=== PATIENT | female | born 1930 | race Caucasian/White ===

== ENCOUNTER 2018-05-28 17:07 | Emergency (ER) | payer OTHER ==
[~2018-05-28] VITALS: Ht 149.9 cm; Wt 40.8 kg
[~2018-05-28 17:07] MED LIST: ASPI81EC; ATOR10; CEPH500 PO; HYDACE5 PO; METO50ER; RXHYDACE PO
[2018-05-28 17:59] LABS: BASOPHILS ABSOLUTE AUTO 0.06 K/mm3 (0.00-0.23); BASOPHILS PERCENT AUTO 1 % (0-2); EOSINOPHILS ABSOLUTE AUTO 0.06 K/mm3 (0.00-0.68); EOSINOPHILS PERCENT AUTO 1 % (0-6); Hematocrit 44.6 % (33.0-51.0); Hemoglobin 14.6 g/dL (11.5-16.0); IMMATURE GRAN ABSOLUTE AUTO 0.02 K/mm3 (0.00-0.10); IMMATURE GRAN PERCENT AUTO 0 % (0-1); LYMPHOCYTES ABSOLUTE AUTO 1.52 K/mm3 (0.84-5.20); LYMPHOCYTES PERCENT AUTO 15 % (21-46); MONOCYTES ABSOLUTE AUTO 0.75 K/mm3 (0.16-1.47); MONOCYTES PERCENT AUTO 7 % (4-13); Mean Corpuscular HGB Conc 32.7 g/dL (31.5-36.5); Mean Corpuscular Volume 89 fL (80-100); Mean Platelet Volume 11.2 fL (9.1-12.4); NEUTROPHILS ABSOLUTE AUTO 7.76 K/mm3 (1.96-9.15); NEUTROPHILS PERCENT AUTO 76 % (41-73); Platelet Count 192 K/mm3 (150-400); RDW Coefficient Variation 12.7 % (11.7-14.2); RDW Standard Deviation 41.4 fL (35.1-46.3); Red Blood Cell Count 5.04 M/mm3 (3.80-5.20); White Blood Cell Count 10.17 K/mm3 (4.00-11.30)
[2018-05-28 18:35] LABS: Alanine Aminotransfer (ALT/SGP 20 U/L (12-78); Albumin, Blood 3.7 g/dL (3.4-5.0); Albumin/Globulin Ratio 0.9 (0.8-1.8); Alk Phos 82 U/L (50-136); Anion Gap 9 mmol/L (6-16); Aspartate Aminotrans (AST/SGOT 18 U/L (12-37); Bilirubin, Total 0.9 mg/dL (0.1-1.0); Blood Urea Nitrogen 19 mg/dL (8-24); Bun/Creatinine Ratio 25.9 (12.0-20.0); CO2, Blood 27 mmol/L (21-32); Chloride, Blood 103 mmol/L (98-108); Creatinine, Blood 0.73 mg/dL (0.40-1.00); Globulin, Blood 4.2 g/dL (2.2-4.0); Glomerular Filtration Rate >60 (60-); Glucose, Blood 109 mg/dL (70-99); Potassium, Blood 3.5 mmol/L (3.5-5.5); Sodium, Blood 139 mmol/L (136-145); Total Protein, Blood 7.9 g/dL (6.4-8.2); Troponin I <0.015 ng/mL (0.000-0.040)
== END 2018-05-28 20:26 | disposition home or self-care (01) ==
LOC: ER 17:07
PROVIDERS: Physician Assistant
DX: R00.2 Palpitations (principal); R53.83 Other fatigue; I48.91 Unspecified atrial fibrillation; Z79.899 Other long term (current) drug therapy; Z79.82 Long term (current) use of aspirin; Z88.0 Allergy status to penicillin
CPT/HCPCS: 36415; 71046; 80053; 84484; 85025; 93005; 93010; 96360; 99285-25; J7030

== ENCOUNTER 2019-12-24 22:22 | Inpatient (IN) | payer OTHER ==
[~2019-12-24] VITALS: Ht 149.9 cm; Wt 40.2 kg
[~2019-12-24 22:22] MED LIST changes: -ASPI81EC; +Aspirin EC81 MG PO
[2019-12-24 23:28] LABS: Source, Urine Catheter
[2019-12-24 23:30] LABS: Bilirubin, Urine Neg (Neg); Blood, Urine 5+ (Neg); Glucose Qualitative, Urine Neg (Neg); Ketones, Urine Neg (Neg); Leukocyte Esterase, Urine Neg (Neg); Nitrite, Urine Neg (Neg); Protein, Urine 3+ (Neg); Specific Gravity, Urine 1.025 (1.003-1.022); Urobilinogen, Urine NORM (Normal)
[2019-12-24 23:31] LABS: Appearance, Urine Hazy (Clear); Color, Urine Yellow (P-Yellow)
[2019-12-24] MEDS ORDERED: TOPROL XL25 MG PO (23:33)
[2019-12-24 23:38] LABS: Amorphous Heavy (0-Heavy); Bacteria Few /hpf; Squamous Epithelial Cells Rare /hpf (Few); White Blood Cells, Urine Rare /hpf (0-5)
[2019-12-24 23:42] LABS: BASOPHILS ABSOLUTE AUTO 0.02 K/mm3 (0.00-0.23); BASOPHILS PERCENT AUTO 0 % (0-2); EOSINOPHILS ABSOLUTE AUTO 0.05 K/mm3 (0.00-0.68); EOSINOPHILS PERCENT AUTO 1 % (0-6); Hematocrit 35.7 % (33.0-51.0); Hemoglobin 11.4 g/dL (11.5-16.0); IMMATURE GRAN ABSOLUTE AUTO 0.04 K/mm3 (0.00-0.10); IMMATURE GRAN PERCENT AUTO 0 % (0-1); LYMPHOCYTES PERCENT AUTO 7 % (21-46); MONOCYTES ABSOLUTE AUTO 0.59 K/mm3 (0.16-1.47); MONOCYTES PERCENT AUTO 5 % (4-13); Mean Corpuscular HGB 28.6 pg (26.0-34.0); Mean Corpuscular HGB Conc 31.9 g/dL (31.5-36.5); Mean Corpuscular Volume 90 fL (80-100); Mean Platelet Volume 11.6 fL (9.1-12.4); NEUTROPHILS ABSOLUTE AUTO 9.57 K/mm3 (1.96-9.15); NEUTROPHILS PERCENT AUTO 86 % (41-73); Platelet Count 112 K/mm3 (150-400); RDW Coefficient Variation 12.6 % (11.7-14.2); RDW Standard Deviation 41.7 fL (35.1-46.3); Red Blood Cell Count 3.99 M/mm3 (3.80-5.20); U Amphetamine Screen Not Detected; U Barbituate Screen Not Detected; U Benzodiazapine Screen Not Detected; U Buprenorphine Screen Not Detected; U Cannabinoids Screen Not Detected; U Cocaine Screen Not Detected; U Methadone Screen Not Detected; U Methamphetamine Screen Not Detected; U Opiates Screen Not Detected; U Oxycodone Screen Not Detected; U Phencyclidine Screen Not Detected; U Propoxyphene Screen Not Detected; White Blood Cell Count 11.07 K/mm3 (4.00-11.30)
[2019-12-24 23:56] LABS: International Normalized Ratio 1.1; Prothrombin Time Results 11.7 Sec (9.7-11.5)
[2019-12-25 00:07] LABS: Alanine Aminotransfer (ALT/SGP 19 U/L (12-78); Albumin, Blood 2.8 g/dL (3.4-5.0); Albumin/Globulin Ratio 0.9 (0.8-1.8); Alk Phos 58 U/L (50-136); Anion Gap 4 mmol/L (6-16); Aspartate Aminotrans (AST/SGOT 36 U/L (12-37); Beta HCG, Quantitative, Serum 1 mIU/mL (0-3); Bilirubin, Total 0.4 mg/dL (0.1-1.0); Blood Urea Nitrogen 19 mg/dL (8-24); CO2, Blood 29 mmol/L (21-32); Calcium, Blood 7.9 mg/dL (8.5-10.1); Chloride, Blood 104 mmol/L (98-108); Creatinine, Blood 0.76 mg/dL (0.40-1.00); Glomerular Filtration Rate >60 (60-); Glucose, Blood 120 mg/dL (70-99); Potassium, Blood 3.7 mmol/L (3.5-5.5); Sodium, Blood 137 mmol/L (136-145); Total Protein, Blood 5.8 g/dL (6.4-8.2)
[2019-12-25 00:09] LABS: Ethanol (Alcohol), Blood, Med <3 mg/dL
--- NOTE | 2019-12-25 03:28 | NUR ---
ASSUMED CARE NOTE: ASSUMED CARE OF PT AT 0250, RECEVIED REPORT FROM DEANNA ANN RN. PT IS INTUBATED AND SEDATED. PT RESPONDING TO PAINFUL STIMULI, MOVING HANDS AND FEET. PROPOFOL TITRATED TO 30MCG/KG/MIN FROM 20MCG/KG/MIN. PT HAS C-COLLAR IN PLACE. PT WAS TRANFERED FROM STRETCHER TO BED WITH 4 STAFF MEMBERS, ONE HOLDING C-SPINE IN PLACE. ETT, 7.5, 23 AT THE LIP. VENT SETTINGS AC/16/350/5/25%, SPO2 AT 98% PT'S LUNG SOUNDS ARE CLEAR T/O. OGT TO LIS. PT IN NSR WITH HR IN THE 80'S. PT HAS EXTENSIVE BRUISING, AND SWELLING TO THE FACE, NECK AND SCATTERED T/O. SKIN TEARS NOTED, SEE PICTURES IN CHART. WOUNDS WERE CLEANED AND DRESSED. BP STABLE, TEMP AT 100.4. BLANKETS REMOVED. CALL OUT TO TO PLACE CENTRAL LINE.
[2019-12-25 03:33] LABS: BASOPHILS ABSOLUTE AUTO 0.07 K/mm3 (0.00-0.23); BASOPHILS PERCENT AUTO 0 % (0-2); EOSINOPHILS ABSOLUTE AUTO 0.05 K/mm3 (0.00-0.68); EOSINOPHILS PERCENT AUTO 0 % (0-6); Hematocrit 43.7 % (33.0-51.0); Hemoglobin 14.5 g/dL (11.5-16.0); IMMATURE GRAN ABSOLUTE AUTO 0.14 K/mm3 (0.00-0.10); IMMATURE GRAN PERCENT AUTO 1 % (0-1); LYMPHOCYTES ABSOLUTE AUTO 3.21 K/mm3 (0.84-5.20); LYMPHOCYTES PERCENT AUTO 14 % (21-46); MONOCYTES ABSOLUTE AUTO 1.83 K/mm3 (0.16-1.47); MONOCYTES PERCENT AUTO 8 % (4-13); Mean Corpuscular HGB 28.4 pg (26.0-34.0); Mean Corpuscular HGB Conc 33.2 g/dL (31.5-36.5); Mean Corpuscular Volume 86 fL (80-100); NEUTROPHILS ABSOLUTE AUTO 17.79 K/mm3 (1.96-9.15); NEUTROPHILS PERCENT AUTO 77 % (41-73); RDW Coefficient Variation 12.7 % (11.7-14.2); RDW Standard Deviation 39.6 fL (35.1-46.3); Red Blood Cell Count 5.11 M/mm3 (3.80-5.20); White Blood Cell Count 23.09 K/mm3 (4.00-11.30)
[2019-12-25 03:36] LABS: Mean Platelet Volume 11.7 fL (9.1-12.4); Platelet Count 155 K/mm3 (150-400)
[2019-12-25 03:48] LABS: Alanine Aminotransfer (ALT/SGP 31 U/L (12-78); Albumin, Blood 3.8 g/dL (3.4-5.0); Albumin/Globulin Ratio 1.1 (0.8-1.8); Alk Phos 70 U/L (50-136); Anion Gap 10 mmol/L (6-16); Aspartate Aminotrans (AST/SGOT 59 U/L (12-37); Bilirubin, Total 0.9 mg/dL (0.1-1.0); Blood Urea Nitrogen 19 mg/dL (8-24); Bun/Creatinine Ratio 25.5 (12.0-20.0); CO2, Blood 24 mmol/L (21-32); Calcium, Blood 9.1 mg/dL (8.5-10.1); Chloride, Blood 106 mmol/L (98-108); Creatinine, Blood 0.75 mg/dL (0.40-1.00); Globulin, Blood 3.5 g/dL (2.2-4.0); Glomerular Filtration Rate >60 (60-); Glucose, Blood 110 mg/dL (70-99); Sodium, Blood 140 mmol/L (136-145); Total Protein, Blood 7.3 g/dL (6.4-8.2)
--- NOTE | 2019-12-25 04:48 | NUR ---
UPDATE: 0418- PT RECEVIED RIGHT FEMORAL CENTRAL LINE, FLUSHING WELL. REQUESTED A CVP, WHICH IS 5. SAFE SET IN PLACE. PT IN SUPINE POSITION. WILL CONTINUE TO MONITOR.
--- NOTE | 2019-12-25 06:10 | NUR ---
SHIFT SUMMARY: SEE PREVIOUS NOTE. NO CHANGES TO VENT SETTINGS. PT IS RESPONDING TO PAINFUL STIMULI. PT MOVING FEET FROM SIDE TO SIDE. PROPOFOL TITRATED TO 40MCG/KG/MIN, DUE TO INCREASED AGITATION. FENTYNAL GIVEN PRN FOR PAIN PER EMAR. PT HAS BEEN IN NSR WITH HR IN THE 70'S. OGT TO LIS, DARK BROWN DRAINAGE NOTED. BT HYPOACTIVE IN ALL FOUR QUADRANTS. MCHUGH PATENT DRAINING CLEAR YELLOW URINE. PT RECEVIED RIGHT FEMORAL CENTRAL LINE THIS SHIFT. VITALS STABLE. WILL CONTINUE TO MONITOR PT UNTIL REPORT IS GIVEN TO ONCOMING SHIFT.
--- NOTE | 2019-12-25 09:39 | NUR ---
CARE ASSUMED CARE AND REPORT ASSUMED FROM SHIRA BOWMAN. PT INTUBATED AND SEDATED. PROPOFOL GTT AT 30 MCG. BP LOW WITH MAP 55-65; WILL TITRATE PROPOFOL GTT TO MAINTAIN ADEQUATE BP AND SEDATION. CURRENTLY NSR, HR 70-80S. METOPROLOL DOSE HELD. OGT ATTACHED TO LIWS; BROWN OUTPUT. PT HAS MODERATE AMOUNT OF BLOODY ORAL SECRETIONS. DOES HAVE WOUND IN MOUTH BUT UNABLE TO FULLY VISUALIZE DUE TO TONGUE SWELLING AND ETT. VENT AC 16, 350 , PEEP 5, FIO2 25%. C-COLLAR REMAINS ON PT. DISCUSSED WITH MD BREEN REMOVING C-COLLAR. VERBAL ORDERS TO KEEP C-COLLAR ON UNTIL PT IS AWAKENED AND CAN PROPERLY BE CLEARED FROM C-COLLAR IF THERE IS NO LIGATMENTAL DAMAGE. BUE RESTAINED TO PROTECT ETT. NS MIV INFUSING AT 75 ML/HR. LUNG SOUNDS CLEAR THROUGHOUT. CENTRAL LINE SECURED IN R GROIN. PT LYING FLAT IN [place] TO MAINTAIN ADEQUATE C-SPINE PRECAUTIONS. PT HAS DIFFUSE ECCHYMOSIS ON NECK, UPPER CHEST, SHOULDERS, AND ARMS. MEPILEX DRESSINGS APPLIED TO SKIN TEARS ON ARMS. WILL CONTINUE TO MONITOR.
--- NOTE | 2019-12-25 12:45 | NUR ---
REASSESSMENT PT REMAINS INTUBATED AND SEDATED. VENT AC 16, 350, PEEP 5, FIO2 30%. REMAINS LYING FLAT IN [place] FOR C SPINE PRECAUTIONS. REMAINS IN C-COLLAR. LUNG SOUNDS CLEAR. DURING SEDATION VACATION, PT AWAKENED, WAS FOLLOWING COMMANDS APPROPRIATELY AND OPENING EYES SPONTANEOUSLY. MAP 50-55. MD AWARE. WILL START PT ON LEVOPHED GTT TO IMPROVE BP, CONTINUE SEDATION, AND CONTROL PAIN. FENTANYL IVP GIVEN FOR PAIN. WILL CONTINUE TO MONITOR.
--- NOTE | 2019-12-25 15:58 | NUR ---
REASSESSMENT PT REMAINS INTUBATED AND SEDATED. NO CHANGES TO VENT. LUNG SOUNDS REMAIN CLEAR. PIVOT 1.5 TF STARTED AT 20 ML/HR IN OGT. C-COLLAR CHANGED TO SOFT, [place] C-COLLAR. FENTANYL 50 MCG IVP GIVEN. REMAINS IN [place]SE [place] AND LYING FLAT FOR C-SPINE PRECAUTIONS. LEVOPHED GTT INFUSING AT 2 MCG/MIN. REMAINS IN BUE RESTRAINTS. WILL CONTINUE TO MONITOR.
--- NOTE | 2019-12-25 18:25 | NUR ---
SHIFT SUMMARY PT REMAINED ON VENT AC MODE ENTIRE SHIFT. DURING SEDATION VACATION, PT WAS ABLE TO PURPOSEFULLY FOLLOW COMMANDS. REMAINS IN C-COLLAR, BUT CHANGED TO SOFT [place] COLLAR. TF STARTED AT 1600 AND PT TOLERATING TODAY. FACIAL AND NECK SWELLING HAS INCREASED SINCE START OF SHIFT. LEVOPHED GTT STARTED MIDDAY AND INFUSING AT 2 MCG/MIN. FENTANYL GIVEN PRN FOR PAIN. PT HAS REMAINED IN [place] TO MAINTAIN C-SPINE PRECAUTIONS. HAS REMAINED IN NSR, HR 70-80S. WILL GIVE BEDSIDE, HANDOFF REPORT TO NOC RN.
--- NOTE | 2019-12-25 19:00 | NUR ---
ASSUMED CARE NOTE: ASSUMED CARE OF PT AT 1900, RECEVIED REPORT FROM BRANT BOWMAN. PT CONTINUES TO BE ON SAME VENT SETTINGS AC16/350/5/25%, SPO2 AT 99% NO RESPRIATORY DISTRESS NOTED. PT IS HAVING BLOODY ORAL SECRETIONS, FROM TONUGE SWELLING AND BRUSING, POSSIBLE LACERATION, NONE VISIBLE. PT IN NSR WITH HR IN THE 80'S. PT MAKING NON-PURPOSEFUL MOVEMENTS, PT RESPONDS TO PAINFUL STIMULI. PT IS SEDATED WITH 30MCG/KG/MIN OF PROPOFOL. CPOT OF 7, FENTYNAL GIVEN PER EMAR WITH GOOD EFFECT. PT IS TOLERATING TUBE FEEDING RUNNING AT 20ML/HR NO RESIDUAL NOTED. HYPOACTIVE BT HEARD T/O . MCHUGH PATENT DRAINING CLEAR YELLOW URINE. VITALS STABLE. LEVOPHED AT 1MCG/MIN, WILL TITRATE TO MAINTAIN MAP ABOVE 65. WILL CONTINUE TO MONITOR PT T/O SHIFT.
--- NOTE | 2019-12-26 04:47 | NUR ---
SEDATION VACATION: PROPOFOL WAS TURNED OFF, WITHIN 10 MINUTES PT WAS ABLE TO FOLLOW COMMANDS AND MOVE ALL EXTREMITIES. PT WAS TOLD NOT TO MOVE TO HEAD. PT WAS THEN PLACED ON SPONTANEOUS BREATHING TRIAL. PT WAS PULLING GOOD TIDAL VOLUMES, HOWEVER, SHE SHE WAS BREATHING 8 BREATHS PER MINUTE. PT WAS ABLE TO BLINK TWICE TO ANSWER YES AND BLINK ONCE FOR NO. PT WAS MOVING AROUND IN BED. PT WAS GRIMICING AND ATTEMPTING TO REACH UP TO HER TUBE WITH HAND. PT WAS BENDING KNEES. PT WAS THEN PLACED BACK TO AC MODE WITH SAME SETTINGS. PROPOFOL RESTARTED.
[2019-12-26 04:51] LABS: BASOPHILS ABSOLUTE AUTO 0.01 K/mm3 (0.00-0.23); BASOPHILS PERCENT AUTO 0 % (0-2); EOSINOPHILS ABSOLUTE AUTO 0.05 K/mm3 (0.00-0.68); EOSINOPHILS PERCENT AUTO 1 % (0-6); Hematocrit 24.7 % (33.0-51.0); Hemoglobin 8.2 g/dL (11.5-16.0); IMMATURE GRAN ABSOLUTE AUTO 0.02 K/mm3 (0.00-0.10); IMMATURE GRAN PERCENT AUTO 0 % (0-1); LYMPHOCYTES PERCENT AUTO 16 % (21-46); MONOCYTES ABSOLUTE AUTO 0.56 K/mm3 (0.16-1.47); MONOCYTES PERCENT AUTO 8 % (4-13); Mean Corpuscular HGB 29.4 pg (26.0-34.0); Mean Corpuscular HGB Conc 33.2 g/dL (31.5-36.5); Mean Corpuscular Volume 89 fL (80-100); Mean Platelet Volume 10.9 fL (9.1-12.4); NEUTROPHILS ABSOLUTE AUTO 5.55 K/mm3 (1.96-9.15); NEUTROPHILS PERCENT AUTO 75 % (41-73); Platelet Count 97 K/mm3 (150-400); RDW Coefficient Variation 13.2 % (11.7-14.2); RDW Standard Deviation 43.5 fL (35.1-46.3); Red Blood Cell Count 2.79 M/mm3 (3.80-5.20); White Blood Cell Count 7.39 K/mm3 (4.00-11.30)
[2019-12-26 05:05] LABS: Magnesium, Blood 1.5 mg/dL (1.6-2.4)
[2019-12-26 05:07] LABS: Anion Gap 5 mmol/L (6-16); Blood Urea Nitrogen 12 mg/dL (8-24); Bun/Creatinine Ratio 23.9 (12.0-20.0); CO2, Blood 21 mmol/L (21-32); Chloride, Blood 122 mmol/L (98-108); Glomerular Filtration Rate >60 (60-); Glucose, Blood 107 mg/dL (70-99); Phosphorus, Blood 1.1 mg/dL (2.5-4.9); Potassium, Blood 2.4 mmol/L (3.5-5.5); Sodium, Blood 148 mmol/L (136-145)
[2019-12-26 05:09] LABS: Calcium, Blood 5.5 mg/dL (8.5-10.1)
--- NOTE | 2019-12-26 06:11 | NUR ---
SHIFT SUMMARY: NO CHANGES TO VENT SETTINGS. PT HAD A SEDATION VACATION AND VENT WEAN TRIAL, SEE PREVIOUS NOTE. PT CONTINUES TO RESPOND TO PAINFUL STIMULI. PT CONTINUES TO HAVE SMALL AMOUNTS OF BLOODY ORAL SECRETIONS. MINIMAL THIN WHITE SECRETIONS VIA ETT. PT HAS BEEN IN SINUS RYTHYM WITH HR IN THE 70'S. TUBE FEEDING RUNNING AT GOAL 20ML/HR, 5 ML FOR LAST RESIDUAL. PT RECEVING K+ AND CALCIUM REPLACEMNT. LEVOPHED CONTINUES TO BE ON SB SINCE 0200, MAP HAS MAINTAINED GREATER THAN 65. MCHUGH PATENT DRAINING CLEAR YELLOW URINE, LOW URINE OUTPUT 200ML. PT HAS REQUIRED PRN FENTYNAL FOR PAIN. WILL CONTINUE TO MONITOR PT UNTIL REPORT IS GIVEN TO ONCOMING SHIFT.
[2019-12-26 10:00] LABS: BASOPHILS ABSOLUTE AUTO 0.02 K/mm3 (0.00-0.23); BASOPHILS PERCENT AUTO 0 % (0-2); EOSINOPHILS ABSOLUTE AUTO 0.06 K/mm3 (0.00-0.68); EOSINOPHILS PERCENT AUTO 1 % (0-6); Hematocrit 32.2 % (33.0-51.0); Hemoglobin 10.4 g/dL (11.5-16.0); IMMATURE GRAN ABSOLUTE AUTO 0.02 K/mm3 (0.00-0.10); IMMATURE GRAN PERCENT AUTO 0 % (0-1); LYMPHOCYTES PERCENT AUTO 12 % (21-46); MONOCYTES ABSOLUTE AUTO 0.61 K/mm3 (0.16-1.47); MONOCYTES PERCENT AUTO 7 % (4-13); Mean Corpuscular HGB 28.7 pg (26.0-34.0); Mean Corpuscular HGB Conc 32.3 g/dL (31.5-36.5); Mean Corpuscular Volume 89 fL (80-100); Mean Platelet Volume 11.9 fL (9.1-12.4); NEUTROPHILS ABSOLUTE AUTO 6.87 K/mm3 (1.96-9.15); NEUTROPHILS PERCENT AUTO 80 % (41-73); Platelet Count 114 K/mm3 (150-400); RDW Coefficient Variation 13.3 % (11.7-14.2); RDW Standard Deviation 43.7 fL (35.1-46.3); Red Blood Cell Count 3.63 M/mm3 (3.80-5.20); White Blood Cell Count 8.58 K/mm3 (4.00-11.30)
[2019-12-26 10:03] LABS: Alanine Aminotransfer (ALT/SGP 28 U/L (12-78); Albumin, Blood 2.6 g/dL (3.4-5.0); Albumin/Globulin Ratio 0.8 (0.8-1.8); Alk Phos 57 U/L (50-136); Anion Gap 4 mmol/L (6-16); Aspartate Aminotrans (AST/SGOT 49 U/L (12-37); Bilirubin, Total 0.7 mg/dL (0.1-1.0); Blood Urea Nitrogen 15 mg/dL (8-24); Bun/Creatinine Ratio 23.1 (12.0-20.0); CO2, Blood 24 mmol/L (21-32); Chloride, Blood 115 mmol/L (98-108); Creatinine, Blood 0.65 mg/dL (0.40-1.00); Globulin, Blood 3.1 g/dL (2.2-4.0); Glomerular Filtration Rate >60 (60-); Glucose, Blood 137 mg/dL (70-99); Potassium, Blood 4.6 mmol/L (3.5-5.5); Sodium, Blood 143 mmol/L (136-145); Total Protein, Blood 5.7 g/dL (6.4-8.2)
[2019-12-26 10:04] LABS: Calcium, Blood 8.4 mg/dL (8.5-10.1)
--- NOTE | 2019-12-26 10:25 | NUR ---
PT IS ABLE TO FOLLOW COMMANDS AND SETH WITH MINIMAL SED. VAC TIME. PT IS RESTRAINED. R GROIN LINE IS INTACT AND IVF NOTED. IVPB RIDERS INFUSING. VSS. VENT SETTINGS NOTED.
--- NOTE | 2019-12-26 22:00 | NUR ---
ASSUMED CARE: PT INTUBATED AND SEDATED. GRIMACED WITH ORAL CARE. IN SR. LUNG SOUNDS CLEAR. AC SETTNIGS ARE 16/350/5/25%. OGT IN PLACE WITH PIVOT 1.5 AT 20MLS/HR WHICH IS GOAL. MINIMAL RESIDUALS. MCHUGH IN PLACE DRAINING YELLOW URINE. R FEM CL IN PLACE. LAC [id number]. PROPOFOL INF AT 35MCG/HR, SODIUM PHOSPHATE INFUSING AND NS TKO. [place] HAS EXTENSIVE BRUISING TO NECK WELL SOME SWELLING. C-COLLAR IN PLACE. WILL CONTINUE TO MONITOR
--- NOTE | 2019-12-27 01:08 | NUR ---
LEGAL FINANCIAL SPECIALIST AND PALLIATIVE CARE NEEDS TO MEET WITH PT'S SON CLAIRE. IF CLAIRE DOES NOT WANT TO BE POA THEN CLAIRE NEEDS TO BE ASKED IF GRAND DAUGHTER SUE CAN BE POA
[2019-12-27 03:42] LABS: BASOPHILS ABSOLUTE AUTO 0.02 K/mm3 (0.00-0.23); BASOPHILS PERCENT AUTO 0 % (0-2); EOSINOPHILS ABSOLUTE AUTO 0.03 K/mm3 (0.00-0.68); EOSINOPHILS PERCENT AUTO 0 % (0-6); Hematocrit 30.1 % (33.0-51.0); Hemoglobin 9.9 g/dL (11.5-16.0); IMMATURE GRAN ABSOLUTE AUTO 0.04 K/mm3 (0.00-0.10); IMMATURE GRAN PERCENT AUTO 0 % (0-1); LYMPHOCYTES ABSOLUTE AUTO 1.22 K/mm3 (0.84-5.20); LYMPHOCYTES PERCENT AUTO 12 % (21-46); MONOCYTES ABSOLUTE AUTO 0.54 K/mm3 (0.16-1.47); MONOCYTES PERCENT AUTO 5 % (4-13); Mean Corpuscular HGB 29.3 pg (26.0-34.0); Mean Corpuscular HGB Conc 32.9 g/dL (31.5-36.5); Mean Corpuscular Volume 89 fL (80-100); Mean Platelet Volume 11.3 fL (9.1-12.4); NEUTROPHILS ABSOLUTE AUTO 8.28 K/mm3 (1.96-9.15); NEUTROPHILS PERCENT AUTO 82 % (41-73); Platelet Count 108 K/mm3 (150-400); RDW Coefficient Variation 13.4 % (11.7-14.2); Red Blood Cell Count 3.38 M/mm3 (3.80-5.20); White Blood Cell Count 10.13 K/mm3 (4.00-11.30)
[2019-12-27 03:59] LABS: Anion Gap 7 mmol/L (6-16); Blood Urea Nitrogen 11 mg/dL (8-24); Bun/Creatinine Ratio 18.8 (12.0-20.0); CO2, Blood 24 mmol/L (21-32); Calcium, Blood 7.5 mg/dL (8.5-10.1); Chloride, Blood 110 mmol/L (98-108); Creatinine, Blood 0.59 mg/dL (0.40-1.00); Glomerular Filtration Rate >60 (60-); Glucose, Blood 141 mg/dL (70-99); Phosphorus, Blood 2.9 mg/dL (2.5-4.9); Potassium, Blood 3.3 mmol/L (3.5-5.5); Sodium, Blood 141 mmol/L (136-145)
--- NOTE | 2019-12-27 05:07 | NUR ---
PT TOLERATED WEAN WELL AT BEGINNING. AWAKE, FOLLOWING COMMANDS, VSS. HOWEVER HR SUDDENLY JUMPED TO 160-180 AND PT CONVERTED INTO AFIB. CALL PLACED TO DR ALLEN. FIRST ORDER: METOPROLOL 5 MG IV X 1. DOSE GIVEN WITH MINIMAL EFFECT. HR DOWN TO 140-160S. CALL PLACED AGAIN TO DR ALLEN. SECOND ORDER RECEIVED: METOPROLOL 5MG IV X 1, FENTANYL 25-50MCG X 1 NOW, AND TYLENOL ELIXIR 325-650. FENTANYL GIVEN. SBP NOW IN THE 70. HR BACK UP TO 160S-180S. METOPROLOL HELD. TYLENOL GIVEN VIA NG. CALL PLACED AGAIN TO DR ALLEN. THIRD ORDER: START PHENYLEPHRINE GTT. ORDERS PUT IN COMPUTER. DR ALLEN CALLED BACK AND ORDERED A CARDIZEM GTT WELL. ALL ORDERS PUT IN. CARDIZEM GTT INITIATED. WILL CONTINUE TO MONITOR
--- NOTE | 2019-12-27 06:52 | NUR ---
CARDIZEM ON WITH LITTLE EFFECT. CALLED DR ALLEN. ORDERS RECEIVED FOR BOLUS AND DRIP STARTED. AND CARDIZEM TURNED OFF. NEOSYNEPHRINE 40 MCG. HR90, SBP IN THE 110S. CURRENTLY IN SR WITH 1ST DEGREE HB. PROPOFOL AT 40MCG. K+ REPLACEMENT RUNNING. VENT SETTINGS ARE 16/350/5/75%. SPO2 >90% R FEM CL IN PLACE. DURING WEAN PT WOKE UP AND FOLLOWED COMMANDS. DID WELL UNTIL PT CONVERTED TO AFIB RVR. AFTER THAT PT TEMP ELEVATED UP TO 101.8. TYLENOL GIVEN. TF TUBING CHANGED AND NEW TF HUNG. PASSED REPORT TO ONCOMING SHIFT
--- NOTE | 2019-12-27 10:20 | NUR ---
PT IS ABLE TO FOLLOW COMMANDS ON SED. VAC. DIMA AGUILA IN TO VISIT. PT NEOSYN. GTT IS ON TITRATION, SEE FLOW SHEET. PT IS SR WITH FIRST DEG. AV BLOCK. PT IS TOLERATING PIVOT TF W/O RESIDUAL.
[2019-12-27 12:04] LABS: Hematocrit 32.6 % (33.0-51.0); Hemoglobin 10.5 g/dL (11.5-16.0)
--- NOTE | 2019-12-27 17:28 | NUR ---
PT VSS ON NEOSYNEPHERINE AT 30MCG, AMIODARONE AT 0.5 MG/MIN, PROPOFOL AT 30MCG, NS TKO. VENT FIO2 DOWN TO 25% AND HAVE HAD BAH SECREATIONS TODAY. PT HAS BEEN AFEBRILE THIS SHIFT. PT IS TOLERATING TF AT 20ML AND NO RESIDUALS.
--- NOTE | 2019-12-27 19:58 | NUR ---
ASSUMED CARE: PT REMAINS INTUBATED AND SEDATED. WILL FOLLOW COMMANDS. AFEBRILE. IN SR WITH 1ST DEGREE HB. SBP IN THE 100-110S. HR IN THE 60-70S. VENT SETTINGS ARE 16/350/5/25%. LUNG SOUNDS CLEAR BUT DIM. NGT IN PLACE. MINIMAL RESIDUALS. R FEM CL IN PLACE. MARY INFUSING AT 30, AMIO AT 0.5 (STARTED AT 1230), PROPOFOL AT 30. PRECEDEX GTT ORDERED FOR AM SBT. WILL CONTINUE TO MONITOR
[2019-12-28 05:12] LABS: BASOPHILS ABSOLUTE AUTO 0.02 K/mm3 (0.00-0.23); BASOPHILS PERCENT AUTO 0 % (0-2); EOSINOPHILS ABSOLUTE AUTO 0.22 K/mm3 (0.00-0.68); EOSINOPHILS PERCENT AUTO 2 % (0-6); Hematocrit 27.7 % (33.0-51.0); Hemoglobin 8.7 g/dL (11.5-16.0); IMMATURE GRAN ABSOLUTE AUTO 0.02 K/mm3 (0.00-0.10); IMMATURE GRAN PERCENT AUTO 0 % (0-1); LYMPHOCYTES ABSOLUTE AUTO 1.37 K/mm3 (0.84-5.20); LYMPHOCYTES PERCENT AUTO 14 % (21-46); MONOCYTES ABSOLUTE AUTO 1.02 K/mm3 (0.16-1.47); MONOCYTES PERCENT AUTO 10 % (4-13); Mean Corpuscular HGB 28.1 pg (26.0-34.0); Mean Corpuscular HGB Conc 31.4 g/dL (31.5-36.5); Mean Corpuscular Volume 89 fL (80-100); NEUTROPHILS ABSOLUTE AUTO 7.49 K/mm3 (1.96-9.15); NEUTROPHILS PERCENT AUTO 74 % (41-73); Platelet Count 138 K/mm3 (150-400); RDW Coefficient Variation 13.9 % (11.7-14.2); RDW Standard Deviation 45.1 fL (35.1-46.3); White Blood Cell Count 10.14 K/mm3 (4.00-11.30)
[2019-12-28 05:51] LABS: Albumin, Blood 1.8 g/dL (3.4-5.0); Anion Gap 5 mmol/L (6-16); Blood Urea Nitrogen 18 mg/dL (8-24); Bun/Creatinine Ratio 24.5 (12.0-20.0); CO2, Blood 24 mmol/L (21-32); Calcium, Blood 7.5 mg/dL (8.5-10.1); Chloride, Blood 110 mmol/L (98-108); Creatinine, Blood 0.74 mg/dL (0.40-1.00); Glomerular Filtration Rate >60 (60-); Glucose, Blood 129 mg/dL (70-99); Potassium, Blood 3.7 mmol/L (3.5-5.5); Sodium, Blood 139 mmol/L (136-145); Vancomycin, Random 8.5 ug/mL
--- NOTE | 2019-12-28 06:28 | NUR ---
SHIFT SUMMARY: PT REMAINS INTUBATED. PROPOFOL TURNED DOWN AND PRECEDEX INITIATED AT 0.2 DOWN FOR WEAN. PT WAS ABLE TO WAKE AND SQUEEZE WITH L HAND AND FOLLOW COMMANDS TO TAKE DEEP BREATHS. SEDATION REMAINS DOWN. AFEBRILE. IN SR 1ST DEGREE HB. SBP 100-130S. HR IN THE 60S. AMIO IS OFF. NEOSYNEPHRINE IS DOWN TO 20MCG. LUNG SOUNDS CLEAR, DIM IN BASES. DURING WEAN AND SBT PT NEEDED REMINDERS TO TAKE DEEP BREATHS. FENTANYL WAS GIVEN FOR PAIN AT THIS TIME. PT DID ULTIMATELY DESAT AND FIO2 WAS INCREASED FROM 25% TO 35%. AND WAS SWITCHED OVER TO AC SETTINGS. NGT IN PLACE. 80MLS RESIDUAL OUT AND REINSTILLED. PIVOT RUNNING AT GOAL OF 20MLS. CL IN R FEM-C/D/I. PER DR FLORES, CL POSSIBLY BEING PULLED AND PICC PLACED INSTEAD. NS AT TKO, PROPOFOL AT 20MCG, PRECEDEX ANT 0.2MCG, NEOSYNEPHRINE AT 20MCG. WILL PASS REPORT TO ONCOMING SHIFT
--- NOTE | 2019-12-28 08:00 | NUR ---
PT. INTUBATED TO VENT. TV 350, PEEP 5, FIO2 30%. ON PRECEDEX, PROPOFOL, NEOSYN. PT. ABLE TO FOLLOW COMMANDS, PERIOPERATIVE ASSISTANT WITH BOTH HANDS. TITRATING DOWN ON PROPOFOL. POSSIBLE EXTUBATION TODAY.
--- NOTE | 2019-12-28 12:35 | NUR ---
BEDSIDE REPORT TAKEN AT 0700. 0700: PT ON PROPOFOL AT 20MCG, PRECEDEX 0.2MCG FOR MECH VENT. PT AWOKE TO VOICE AND ABLE TO FOLLOW SIMPLE COMMANDS. PT IN SINUS RYTHYM/SINUS BRAVO. NEOSYNEPHRINE AT 20MCG; BP STABLE. AMIODARONE WAS TURNED OFF DURING CONCRETE TECHNICIAN. DR FLORES CALLED AT 0730 TO CONFIRM THAT AMIO IV/PT WAS NOT NEEDED. DR FLORES IN AROUND 0800 TO ASSESS PT. PROPOFOL PLACED ON STANDBY AT 0800 FOR POTENTIAL EXTUBATION. PT PLACED ON SBT 8/5 AROUND 0830. PT TOLERATED WEAN WELL. EXTUBATION ORGANIZED WITH DR BREEN SO THAT NECK BRACE COULD BE DC'D FOLLOWING EXTUBATION IN THE EVENT PT WOULD REQUIRE BIPAP. PT EXTUBATED AT 1120. PT PLACED ON 4L 02 VIA N/C, O2 WAS QUICKLY TITRATED DOWN TO 2L. PRECEDEX DC'D ALONG W NEOSYNEPRINE POST EXTUBATION. RESTRAINTS DC'D WELL AT 1120. PT PROFOUNDLY WEAK, ABLE TO WHISPER ONLY, VERY HARSH WHISPER. MODERATE COUGH, ABLE TO CLEAR SECRETIONS WITH ASSIST (SX). PT WENT INTO PAROXSMAL AFIB W RVR POST EXTUBATION WITH RATE BETWEEN 90-130. RATE INCREASED UP TO 170; 5MG LOPRESSOR IV GIVEN PER DR FLORES W GOOD EFFECT. RATE NOW 80'S, IN SINUS RYTHYM. BP STABLE. PT'S SON CALLED AND UPDATED WITH PT'S PERMISSION. PT DOES SEEM ORIENTED BUT AGAIN PT IS VERY DIFFICULT TO UNDERSTAND D/T WEAK VOICE.
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
--- NOTE | 2019-12-28 18:54 | NUR ---
PT AWAKE FOR MAJORITY OF SHIFT FOLLOWING EXTUBATION THIS AM AT 1120. PT HAS BEEN VERY DROWSY AND PROFOUNDLY WEAK BUT CONTINUES TO ANSWERS QUESTIONS APPROPRIATELY. PT ABLE TO COUGH SPUTUM UP; SPUTUM VERY THICK AND DARK BAH. SATS STABLE >90% ON 2L VIA N/C. PT HAS DENIED PAIN BUT WAS UNABLE TO TOLERATE CPT D/T INCREASED PAIN. PT BRIEFLY WENT INTO AFIB W RVR POST INTUBATION BUT HAS REMAINED IN SINUS AFTER LOPRESSOR IV. PT'S SON VISITED TODAY; PT HAD STATED THAT SHE WOULD LIKE HIM TO VISIT. SHE DID BECOME EMOTIONAL; TEARFUL, AND UPSET AT THE BEGINNING OF THE VISIT AND THEN CALMED.
--- NOTE | 2019-12-28 20:00 | NUR ---
ASSUMED PT CARE REPORT FROM DANNA BOWMAN AT 1900. . ASSUMED PT CARE. PT ALERT AND ORIENTED. ON 2L O2 PER NC. SATS >92%. PT HAS WEAK, PRODUCTIVE COUGH. SPUTUM IS THICK, CLEAR WITH BLOOD STREAKS. PT LUNG SOUNDS CLEAR TO UPPER LORENZO, COARSE TO LOWER LORENZO. ABD SOFT, NON TENDER, BRUISING TO LEFT HIP AREA. BS ACTIVE. PT DENIES NAUSEA. PT NPO AT THIS TIME. MULT AREAS OF BRUISING AND PETECHIA TO FACE/NECK/CHEST. SKIN TEARS TO RIGHT AND LEFT FA WITH FOAM DRESSINGS SECURE. PT INTERACTIVE, USES CALL LIGHT. QUAD LUMEN CENTRAL LINE TO RIGHT GROIN AREA, WITH NS INFUSING AT 10ML/HR. DRESSING C/D/I. PT HAS PATENT TEMP PROBE MCHUGH DRAINING CLEAR YELLOW URINE. TEMP 100. SEE FULL SHIFT ASSESSMENT.
--- NOTE | 2019-12-29 06:18 | NUR ---
SHIFT SUMMARY PT HAD GOOD NIGHT. CONTINUES TO CLEAR SECRETIONS WITH MODERATE EFFORT. SATS >92% ON 2L O2 PER NC. SECRETIONS THICK, LESS BLOOD STREAKED. PT ABLE TO MOVE ARMS FREELY. STILL UNABLE TO MANAGE SUCTION CANNULA INDEPENDENTLY. CALL LIGHT IN REACH, PT ABLE TO USE. PT SPEAKING MULTI WORD SENTENCES WITH LESS RASPINESS. ABD SOFT AND NON TENDER. PT SKIN UNCHANGED FROM BEGINNING OF SHIFT. NEW DRESSINGS TO RIGHT AND LEFT FA. PT CURRENTLY IN NSR. GOES INTO AFIB MULT TIMES. PT HAD INCIDENCE OF AFIB WITH RVR, NEEDED ADDITIONAL DOSE OF IV METOPROLOL. QUAD LUMEN CENTRAL LINE TO RIGHT GROIN REMAINS PATENT, DRESSING C/D/I. PATENT TEMP MCHUGH DRAINING YELLOW URINE. PT REMAINED AFEBRILE THROUGH OUT SHIFT. WILL REPORT TO ONCOMING SHIFT.
--- NOTE | 2019-12-29 07:45 | NUR ---
PT RECEIVED REPORT FROM JO ANN, PT. SITTING UP IN BED, SPEAKING IN COMPLETE SENTENCES, HOARSE VOICE. MOUTH MOISTERIZER APPLIED. REPOSITIONED PT.
--- NOTE | 2019-12-29 07:48 | NUR ---
PT AWAKE AND ALERT, FOLLOWS COMMANDS AND SPEAKING IN FULL SENTENCES LUNG SOUNDS CLEAR TO UPPER LOBES COARSE TO BASES. PT. HAS A WEAK COUGH WITH COPIOUS AMOUNTS OF BAH SPUTUM STREAKED WITH BLOOD. BOWEL TONES NORMAL TO ALL QUDRANTS, NO N/V. MCHUGH CATH DRAINING CLEAR YELOOW URINE TO DRAIN BAG. MULTIPLE WOUNDS COVERED WITH MEPELEX TO EXTREMITIES. PLEASE SEE CHART. NO EDEMA NOTED TO LOWER EXTREMETIES.
[2019-12-29 08:56] LABS: Vancomycin, Trough 6.9 ug/mL (5.0-10.0)
--- NOTE | 2019-12-29 10:00 | NUR ---
[facility] DISC RULER OPERATOR DARLENE PETERSEN IN TO EVALUATE PT. HEALTH INFORMATION GIVEN. NO NEW INFO
--- NOTE | 2019-12-29 15:11 | NUR ---
PT'S SON AYLA IN TO SEE PT. PT CONVERSING WITH AYLA, NO AGITATION.
--- NOTE | 2019-12-29 15:40 | NUR ---
PT HR INCREASED TO 15-165, AFIB RVR, NOTIFIED DR. IVY, RECEIVED ORDER FOR METOPROLOL 5MG X1
--- NOTE | 2019-12-29 16:23 | NUR ---
PT NOW IN SR 90, FIRST DEGREE, B/P 158/72. PT. DENIES CP OR SOB. O2 RA@93%
--- NOTE | 2019-12-29 17:07 | NUR ---
PT HAS BEEN AWAKE THE MAJORITY OF SHIFT. ANSWERING QUESTIONS APPROPRIATELY. PT. FAILED SWALLOW EVAL TODAY AND REMAINS NPO. PT DECIDING ON ALLOWING DOBBHOFF TUBE INSERTION TOMORROW FOR TUBE FEED. CERVICAL MRI PERFORMED TODAY INDICATING SOME SOFT TISSUE EDEMA. PER DR. BREEN PT. TO WEAR SOFT COLLAR FOR COMFORT BUT MAY BE REMOVED NEEDED. CENTRAL LINE D/C TODAY AND POWER GLIDE INSERTED TO LEFT ARM. pt ALSO WORKED WITH PT JOEL AND SHE WAS ABLE TO DANGLE LEGS AT SIDE OF BED. PT'S SON AYLA IN TO HER TODAY AND IT WAS A POSITIVE VISIT. PT. ALSO HAD ONE EPISODE OF AFIB/RVR AND A ONE TIME DOSE OF LOPRESSOR WAS GIVEN WITH DESIRED EFFECT.
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
--- NOTE | 2019-12-29 19:30 | NUR ---
ASSUMED PT CARE REPORT FROM DANNA BOWMAN AND NICOLE BOWMAN AT 1900. ASSUMED PT CARE. PT ALERT AND ORIENTED. ABLE TO USE CALL LIGHT. PT ABILITY TO TALK MUCH IMPROVED FROM PREVIOUS SHIFT. WOUNDS TO RIGHT AND LEFT FA IMPROVED. NON-ADHERENT DRESSING IN PLACE. PT HAS ATTENDS IN PLACE, CALLS WHEN SHE NEEDS TO BE CHANGED. PT C/O SOME ABD PAIN, STATES SHE FEELS LIKE SHE NEEDS TO STOOL. LUNG SOUNDS CLEAR TO UPPER LORENZO. DIMINISHED/COARSE TO LOWER. PT COUGH IS STRONGER. MOVES UPPER EXT INDEPENDENTLY. WEAKNESS TO LOWER EXT. ABD SOFT, BS ACTIVE. POWER GLIDE TO LEFT ARM, DRESSING C/D/I, NS INFUSING AT 10ML/HR. SEE FULL SHIFT ASSESSMENT.
[2019-12-29 20:40] LABS: Vancomycin, Trough 12.8 ug/mL (5.0-10.0)
[2019-12-30 03:23] LABS: BASOPHILS ABSOLUTE AUTO 0.03 K/mm3 (0.00-0.23); BASOPHILS PERCENT AUTO 0 % (0-2); EOSINOPHILS ABSOLUTE AUTO 0.08 K/mm3 (0.00-0.68); EOSINOPHILS PERCENT AUTO 1 % (0-6); Hematocrit 30.4 % (33.0-51.0); Hemoglobin 9.6 g/dL (11.5-16.0); IMMATURE GRAN ABSOLUTE AUTO 0.02 K/mm3 (0.00-0.10); IMMATURE GRAN PERCENT AUTO 0 % (0-1); LYMPHOCYTES ABSOLUTE AUTO 1.02 K/mm3 (0.84-5.20); LYMPHOCYTES PERCENT AUTO 13 % (21-46); MONOCYTES ABSOLUTE AUTO 0.84 K/mm3 (0.16-1.47); MONOCYTES PERCENT AUTO 11 % (4-13); Mean Corpuscular HGB 28.1 pg (26.0-34.0); Mean Corpuscular HGB Conc 31.6 g/dL (31.5-36.5); Mean Corpuscular Volume 89 fL (80-100); Mean Platelet Volume 10.1 fL (9.1-12.4); NEUTROPHILS ABSOLUTE AUTO 6.01 K/mm3 (1.96-9.15); NEUTROPHILS PERCENT AUTO 75 % (41-73); Platelet Count 187 K/mm3 (150-400); RDW Coefficient Variation 13.8 % (11.7-14.2); RDW Standard Deviation 44.8 fL (35.1-46.3); Red Blood Cell Count 3.42 M/mm3 (3.80-5.20)
[2019-12-30 03:38] LABS: Anion Gap 6 mmol/L (6-16); Blood Urea Nitrogen 17 mg/dL (8-24); Bun/Creatinine Ratio 30.8 (12.0-20.0); CO2, Blood 28 mmol/L (21-32); Chloride, Blood 111 mmol/L (98-108); Creatinine, Blood 0.55 mg/dL (0.40-1.00); Glomerular Filtration Rate >60 (60-); Glucose, Blood 120 mg/dL (70-99); Phosphorus, Blood 1.5 mg/dL (2.5-4.9); Potassium, Blood 2.9 mmol/L (3.5-5.5); Sodium, Blood 145 mmol/L (136-145)
--- NOTE | 2019-12-30 06:15 | NUR ---
SHIFT SUMMARY PT HAD GOOD SHIFT. HASNT SLEPT. PT SHOWS AFIB-NSR ON MONITOR. REQUIRED MULT PRN DOSES OF METOPROLOL FOR TACHY AFIB. BP WNL. SATS >92% ON 2L PER NC. SKIN IMPROVING. BRUISING STARTING TO EVEN OUT. PT STRENGTH MUCH IMPROVED. ABLE TO BRING ARMS TO FACE, UNABLE TO MANAGE SUCTION DEVICE. PT USES CALL LIGHT APPROPRIATELY. PT ABLE TO COMMUNICATE NEEDS. PT HAD LARGE BM THAT REQUIRED DIGITAL DISIMPACTION. PT CL REMOVAL SITE WNL. POWER GLIDE TO MERARI. K PHOS INFUSING DUE TO K OF 2.9 AND PHOSPHORUS OF 1.5. NS INFUSING AT TKO. PT LUNG SOUNDS COARSE TO LOWER LORENZO, SPUTUM BAH/BLOOD STREAKED/RED. WILL REPORT TO ONCOMING RN.
--- NOTE | 2019-12-30 08:57 | NUR ---
ASSUMED CARE OF PT AT 0700. REPORT FROM GUILLERMO BOWMAN. PT RESTING IN BED. A&OX 3. ANSWERS QUESTIONS APPROPRIATELY. DENIES PAIN. ABLE TO MOVE ALL EXTREMITIES. LUNGS DIMINISHED IN BASES. PT c FREQUENT PRODUCTIVE COUGH. NEEDS ASSISTANCE c SUCTIONING. ABLE TO USE CALL LIGHT APPROPRIATELY. PT c INCREASED ROM TO NECK FROM YESTERDAY DAY SHIFT. DENIES NEEDS FOR PAIN MEDS. ABD ROUND, SOFT AND NON TENDER. BT X 4. PT INCONTINENT OF URINE, ATTENDS IN PLACE. ABLE TO CALL WHEN SHE NEEDS CHANGED. MULTIPLE AREAS OF BRUISING AND ABRASIONS, SEE PHOTOS. WILL DISCUSS DOBHOFF VS CPN TODAY c HOSPITALIST AND PT. VSS. WILL CONTINUE TO MONITOR.
--- NOTE | 2019-12-30 15:52 | NUR ---
Consult request. pt with rosa for support for video chat court meeting. Review of pt with chaplian she states she is renacting event and expressing fear. Review of pt with nursing and pt sleep patterns. Nursing states not steeping well and some startle. Suggested we contact psyciatirc team for some supportive care for ptsd and trauma and sleep hygiene. They are contacting Carolyn. Oren mcmahon for symptom management and assist with resources.
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
--- NOTE | 2019-12-30 17:32 | NUR ---
SHIFT SUMMARY PT HAD BUSY SHIFT c MULTIPLE AREAS OF IMPROVEMENT. PT WORKED c PT/OT. UP TO CHAIR MOST OF DAY. ABLE TO STAND AND PIVOT c ONE PERSON ASSIST. ALSO ABLE TO ASSIST MORE c TURNS AND CARE. DECREASE IN SECRETIONS. ABLE TO MOVE WASHRAG UP TO MOUTH AND SPIT SECRETIONS. BAH/BLOOD STREAKED. REMAINS ON 2L VIA NC. VOICE IMPROVED. PPN STARTED THIS SHIFT. PT REFUSING DOBHOFF AT THIS TIME. PT HOPEFUL THAT SWALLOW WILL IMPROVE FOR REEVAL TOMORROW. PT c MULTIPLE EPISODES OF AFIB, SCHEDULED AND PRN METOPROLOL GIVEN. BP STABLE. WILL CONTINUE TO MONITOR UNTIL REPORT TO ONCOMING NURSE.
[2019-12-31 03:41] LABS: Anion Gap 5 mmol/L (6-16); Blood Urea Nitrogen 17 mg/dL (8-24); Bun/Creatinine Ratio 34.4 (12.0-20.0); CO2, Blood 31 mmol/L (21-32); Calcium, Blood 8.2 mg/dL (8.5-10.1); Chloride, Blood 107 mmol/L (98-108); Creatinine, Blood 0.49 mg/dL (0.40-1.00); Glomerular Filtration Rate >60 (60-); Glucose, Blood 141 mg/dL (70-99); Magnesium, Blood 2.2 mg/dL (1.6-2.4); Phosphorus, Blood 1.8 mg/dL (2.5-4.9); Potassium, Blood 3.1 mmol/L (3.5-5.5); Sodium, Blood 143 mmol/L (136-145)
--- NOTE | 2019-12-31 03:43 | NUR ---
RHYTHM ATRIAL FIB. WITH RVR, RATE 170'S; BP STABLE. 0355: PATIENT GIVEN METOPROLOL 5MG IVP PER MD ORDERS. RHYTHM REMAINS ATRIAL FIB., RATE 120'S.
--- NOTE | 2019-12-31 04:27 | NUR ---
PATIEN'S RHYTHM REMAINS ATRIAL FIB., RATE 140-160'S. CALLED DR. GUY. REC'D. ORDER FOR DILTIAZEM 10MG IVP X 1 DOSE; MAY REPEAT X 1, AND IF RATE STILL HIGH, START CARDIZEM DRIP.
--- NOTE | 2019-12-31 04:30 | NUR ---
0432: PATIENT GIVEN DILTIAZEM 10 MG IVP; RHYTHM ATRIAL FIB. RATE 140'S. 0453: PATIETN GIVEN DILTIAZEM 10 MG IVP; RHYTHM ATRIAL FIB. RATE 140'S. 0516: PATIENT STARTED ON DILTIAZEM DRIP AT 10MG/HR; RHYTHM ATRIAL FIB., RATE 140-160'S. BP STABLE.
--- NOTE | 2019-12-31 06:11 | NUR ---
SHIFT SUMMARY: PATIENT AWAKE MOST OF THE NIGHT. PATIENT DENIES PAIN OR SOB. PATIENT ON OXYGEN AT 4L/MIN VIA NASAL CANNULA WITH SATS 92%; BREATH SOUNDS CLEAR BILATERALLY. PATIENT'S RHYTHM CHANGED THIS AM TO ATRIAL FIB. WITH RVR; PATIENT GIVEN PRN METOPROLOL 5MG; CARDIZEM 10MG IVP X2, AND STARTED ON CARDIZEM DRIP AT 10MG/HR VIA PIV TO LEFT HAND; HR 100-110, ATRIAL FIB. CLINIMIX INFUSING AT 70CC/HR WITH NS TKO VIA POWERGLIDE TO LEFT UPPER ARM. PATIENT INCONTINENT OF URINE MULITPLE TIMES DURING THE NIGHT; DEPENDS IN PLACE. PATIENT C/O MOUTH DRYNESS; ORAL CARE DONE EVERY 2-4 HOURS. PATIENT STATES SHE MAY RECONSIDER HAVING FEEDING TUBE PLACED TODAY. CONTINUE CURRENT POC. AWAITING DAY SHIFT FOR HANDOFF.
--- NOTE | 2019-12-31 07:30 | NUR ---
ASSUMED CARE: PT RESTING QUIETLY IN BED. NC AT 4L. CARDIZEM GTT AT 15ML/HR FOR AFIB IN 120S. CLINIMIX ALSO RUNNING. PT APPEARS COMFORTABLE AT THIS TIME.
--- NOTE | 2019-12-31 11:10 | NUR ---
PHYSICAL THERAPY WORKED WITH PT AND DID BED EXERCISES. SPEECH ATTEMPTED TO SEE PT AND WAS TOO TIRED TO PROCEED. SPEECH STATES PT DID WELL WITH NECTAR THICKENED CONSISTENCIES. IV BEGAN BEEPING. EXAMINED POWER GLIDE AND NOTED PORTION OF CATHETER EXPOSED AND UNABLE TO FLUSH EVEN WITH CAPS OFF. CLINIMIX AND LIPIDS ON STANDBY. DISCUSSED WITH ANOTHER RN FOR ULTRASOUND TO FIND SECOND SITE.
--- NOTE | 2019-12-31 12:25 | NUR ---
REPORT GIVEN TO MICHAEL BOWMAN. PT TRANSFERRED VIA BED TO ROOM PCU 3. RN AND PCU COORDINATOR AWARE THAT PT NEEDED 2ND IV ACCESS FOR LEVAQUIN AND CLINIMIX DUE TO CARDIZEM RUNNING IN LEFT HAND. COORDINATOR STATED SHE WOULD LOOK FOR ACCESS WHEN PT GO TO NEW ROOM
[2019-12-31 15:00] LABS: Anion Gap 6 mmol/L (6-16); Blood Urea Nitrogen 21 mg/dL (8-24); Bun/Creatinine Ratio 41.3 (12.0-20.0); CO2, Blood 30 mmol/L (21-32); Calcium, Blood 8.2 mg/dL (8.5-10.1); Chloride, Blood 105 mmol/L (98-108); Creatinine, Blood 0.51 mg/dL (0.40-1.00); Glomerular Filtration Rate >60 (60-); Glucose, Blood 157 mg/dL (70-99); Potassium, Blood 3.3 mmol/L (3.5-5.5); Sodium, Blood 141 mmol/L (136-145)
--- NOTE | 2019-12-31 16:36 | NUR ---
SHIFT NOTE PT WAS TRANSFERRED FROM ICU THIS AFTERNOON. PT'S POWERGLIDE TO ALEX IS VERY POSITIONAL, PT HAD A DIFFICULT TIME KEEPING ARM STRAIGHT FOR IV FLUID ADMIN SO ARM BOARD WAS PLACED SO THAT FLUIDS CAN INFUSE. PT WAS ABLE TO WORK WITH OT AND PT TODAY. PT ALERT, IS ABLE TO ANSWER QUESTIONS APPROPRIATELY, BUT IS SLOW TO ANSWER QUESTIONS.
--- NOTE | 2019-12-31 22:06 | NUR ---
CARE ASSUMPTION ASSUMED CARE AT APPROX 1900. PT A&OX4, SP02>9% ON 4L NC. LUNGS DIM IN BASES. CARDIZEM INFUSING AT 15. CLINIMIX, POTASSIUM PHOSPHATE, AND NS INFUSING PER EMAR. TELEMETRY REPORTS PT SWITCHING BETWEEN SR AND MULTIFOCAL ATRIAL TACHYCARDIA (MAT). HR IN 100'S. PT STATES HER NORMAL HR IS 120'S. CALL LIGHT IN REACH. BED IN LOWEST POSITION.
[2020-01-01 04:04] LABS: BASOPHILS ABSOLUTE AUTO 0.06 K/mm3 (0.00-0.23); BASOPHILS PERCENT AUTO 1 % (0-2); EOSINOPHILS ABSOLUTE AUTO 0.18 K/mm3 (0.00-0.68); EOSINOPHILS PERCENT AUTO 2 % (0-6); Hematocrit 30.9 % (33.0-51.0); Hemoglobin 9.8 g/dL (11.5-16.0); IMMATURE GRAN ABSOLUTE AUTO 0.18 K/mm3 (0.00-0.10); IMMATURE GRAN PERCENT AUTO 2 % (0-1); LYMPHOCYTES ABSOLUTE AUTO 1.34 K/mm3 (0.84-5.20); LYMPHOCYTES PERCENT AUTO 14 % (21-46); MONOCYTES ABSOLUTE AUTO 1.15 K/mm3 (0.16-1.47); MONOCYTES PERCENT AUTO 12 % (4-13); Mean Corpuscular HGB 28.7 pg (26.0-34.0); Mean Corpuscular HGB Conc 31.7 g/dL (31.5-36.5); Mean Corpuscular Volume 90 fL (80-100); Mean Platelet Volume 10.3 fL (9.1-12.4); NEUTROPHILS ABSOLUTE AUTO 6.47 K/mm3 (1.96-9.15); NEUTROPHILS PERCENT AUTO 69 % (41-73); Platelet Count 214 K/mm3 (150-400); RDW Coefficient Variation 13.7 % (11.7-14.2); RDW Standard Deviation 45.2 fL (35.1-46.3); Red Blood Cell Count 3.42 M/mm3 (3.80-5.20); White Blood Cell Count 9.38 K/mm3 (4.00-11.30)
[2020-01-01 04:26] LABS: Anion Gap 5 mmol/L (6-16); Blood Urea Nitrogen 18 mg/dL (8-24); Bun/Creatinine Ratio 35.8 (12.0-20.0); CO2, Blood 31 mmol/L (21-32); Calcium, Blood 8.3 mg/dL (8.5-10.1); Chloride, Blood 105 mmol/L (98-108); Glomerular Filtration Rate >60 (60-); Glucose, Blood 131 mg/dL (70-99); Magnesium, Blood 2.3 mg/dL (1.6-2.4); Phosphorus, Blood 2.4 mg/dL (2.5-4.9); Potassium, Blood 3.4 mmol/L (3.5-5.5); Sodium, Blood 141 mmol/L (136-145)
--- NOTE | 2020-01-01 06:33 | NUR ---
END OF SHIFT SUMMARY PT IS ALERT IN ROOM. SP02 >92% ON 4L NC. PRODUCTIVE COUGH, PRODUCING THICK SPUTUM T/O SHIFT. NPO. TELEMETRY READS SR, HR 90'S-100'S. CARDIZEM DRIP STOPPED THIS SHIFT, PT CONVERTED FROM AFIB TO SR. CLINIMIX INFUSING PER EMAR. PT INCONTINENT OF URINE AND STOOL. 1 PERSON ASSIST FOR BRIEF CHANGES. PT ABLE TO REPOSITION SELF. USES CALL LIGHT APPROPRIATELY. WILL CONTINUE TO MONITOR UNTIL END OF SHIFT.
--- NOTE | 2020-01-01 11:09 | NUR ---
PT STATUS CHNAGED TO MEDICAL WITH NO TELE. TRANSFERRED TO ROOM 336 REPORT GIVEN TO DARCY BOWMAN. PT ALERT AND ORIENTED THIS MORNING, VITALS HRR SR 90'S, BP SYSTOLIC 160'S, SATS ABOVE 94% ON 3L OF O2, AFEBRILE. PT WORKED WITH SPEECH THERAPY PRIOR TO TRANSPORT, STARTED ON PUREE HONEY THICK DIET, NO STRAWS, MEDS GIVEN THIS AM CRUSHED IN PUDDING PT WAS ABLE TO TOLERATE, STARTED ON PO METOPROLOL. SON WAS AT BEDSIDE AWARE OF THE PLAN. PT TRANSFERRED VIA BED ACCOMPANIED BY BULK PALLET BUILDER'S.
--- NOTE | 2020-01-01 11:39 | NUR ---
ASSUMED CARE OF PT AT 1050. PT RESTING COMFORTABLY IN BED WITH CALL LIGHT IN REACH.
--- NOTE | 2020-01-01 17:37 | NUR ---
Pt in bed heart rate elevated. Nursing in to give bolus and Iv metropolol. pt denies headach or chest pain. Some dyspnea and labored breathing. some difficulty swallowing. no nausea she is warm and dry. has genral pain and weakness. Is still not sleeping much and distruaght by stimulus. Review of needs with nursing working with speech, suggest repeat chest xray. KPS score at this time is 50%. Due to pt age and medical conditions and trauma pt high risk for failure to thrive. Will continue supportive visits and monitor sleep and anexiety and fear.
--- NOTE | 2020-01-01 18:28 | NUR ---
SHIFT SUMMARY PT TRANSFERRED FROM PCU AFTER COMING OFF DILTIAZEN DRIP. PT IS INCONT. AND ON PUREE DIET. PT'S HR IN THE 160'S. PHYSICIAN NOTIFIED AND ORDERED 50 MG LOPRESSOR PO. THE PT'S HR CONTINUED TO BE ELEVATED SO LOPRESSOR WAS GIVEN VIA IV. THE PT'S HR STILL REMAINED IN THE 160'S. 10 MG DILTIAZEM WAS THEN GIVEN IV. PT HR WENT DOWN INTO THE 80'S-90'S FOR ABOUT 1 HOUR AND THEN WENT BACK UP INTO THE 140'S. PHYSICIAN NOTIFIED AND THE PT WAS TRANSFERRED BACK TO PCU TO RESUME DILTIAZEM DRIP.
--- NOTE | 2020-01-01 18:46 | NUR ---
REPORT RECEIVED FROM DARCY BOWMAN, PT WAS SENT TO MEDICAL FLOOR THIS MORNING AND PT CONVERTED BACK TO AFIB. PT TO START ON CARDIZEM GTT, REPORT GIVEN TO ONCOMING SHIFT
--- NOTE | 2020-01-02 06:22 | NUR ---
END OF SHIFT SUMMARY PT ALERT, ORIENTED TO SELF AND SITUATION. USES CALL LIGHT APPROPRIATELY. VSS. SP02>92% ON 3L NC. PRODUCTIVE COUGH, PRODUCES THICK CLEAR SPUTUM. PUREE DIET. TELEMETRY READS A FIB 110'S. CARDIZEM DRIP STARTED THIS SHIFT, CURRENTLY INFUSING AT 10 MLS/HR. PT INCONTINENT, DRY ATTENDS IN PLACE. POWERGLIDE IN R ARM INFUSING, POSITIONAL, ARM BOARD IN PLACE FOR STABILITY. PT SLEPT T/O THIS SHIFT. CALL LIGHT IN REACH. WILL CONTINUE TO MONITOR UNTIL END OF SHIFT.
--- NOTE | 2020-01-02 10:28 | NUR ---
PT CONVERTED BACK TO SINUS RHYTHM, HR RANGING 60-70'S, BP SYSTOLIC 120-140'S, SATS ABOVE 95% ON 3L OF O2, AFEBRILE, DENIES CHEST PAIN/PRESSURE. CARDIZEM GTT TRUNED OFF. 75MG PO METOPROLOL GIVEN, PT TOOK MEDS CRUSHED WITH APPLESAUCE WITH NO ISSUES, NO OTHER COMPLAINS AT THIS TIME. POOR APPETITE, REPLACED BREAKFAST WITH ENSURE THIS AM, CHANGED ATTENDS AND REPOSITIONED IN BED. WCTM
--- NOTE | 2020-01-02 14:59 | NUR ---
PT WORKED WITH THERAPY AFTER LUNCH TIME, PT CONVERTED BACK TO AFIB 140-160'S THERAPIST INSTRUCTED TO GET PT RESTED, PT DENIES ANY CHEST PAIN. PT THEN SLOWLY TREND DOWN CONVERTED BACK TO SINUS 80'S THEN BACK TO AFIB 140'S EVEN WHEN SLEEPING, CARDIZEM GTT STARTED AT 10MG/HR BP SYSTOLIC 120'S, AFEBRILE. DR RAMOS CALLED AND MADE AWARE ORDER FRO ROUTINE BMP TO WAIT FOR RESULT FOR ORDERS. PT RESTING IN BED AT THIS TIME WITH NO COMPLAINS WILL MONITOR PT
[2020-01-02 15:40] LABS: Anion Gap 4 mmol/L (6-16); Blood Urea Nitrogen 16 mg/dL (8-24); Bun/Creatinine Ratio 32.1 (12.0-20.0); CO2, Blood 29 mmol/L (21-32); Calcium, Blood 8.4 mg/dL (8.5-10.1); Chloride, Blood 107 mmol/L (98-108); Glomerular Filtration Rate >60 (60-); Glucose, Blood 109 mg/dL (70-99); Potassium, Blood 3.6 mmol/L (3.5-5.5); Sodium, Blood 140 mmol/L (136-145)
--- NOTE | 2020-01-02 18:21 | NUR ---
PT SUMMARY: SEE PREVIOUS NOTES. PT REMAINED IN AFIB RATE 90-115'S, BP SYSTOLIC 150'S, SATS ABOVE 95% ON 3L OF O2, AFEBRILE. DIG LOAD STARTED ADMNISTERED 0.5MG IN 50MLS OF NS. PT DENIES CHEST PAIN. REMAINED ALERT AND ORIENTED, CALLS APPROPRIATELY, REPOSITIONED Q2HRS, NO OTHER ISSUES REPORTED, WILL REPORT TO ONCOMING SHIFT
--- NOTE | 2020-01-03 06:08 | NUR ---
PT RESTED COMFORTABLY THROUGH NIGHT. Q2 TURNS, AND HOB REMAINED >30 DEGREES. NO C/O PAIN. AO. O2 SATS >90% ON 3LNC. INCONTINENT CHANGES X3 - NO BM. TELE A FIB. ORAL CARE DONE. VSS. CALL LIGHT WITHIN REACH, BED IN LOWEST POSITION. WILL CONTINUE TO MONITOR.
--- NOTE | 2020-01-03 07:43 | NUR ---
ASSUME CARE: PT REMAINED ALERT AND ORIENTED, HRR BACK TO SINUS WITH PAC'S AT 90'S, BP SYSTOLIC 150'S, SATS ABOVE 95% ON 3L OF O2, AFEBRILE. PT TO START ON DIGOXIN PO 0.25MG, METOPROLOL INCREASES TO 100MG PER DR RAMOS. NO OTHER ISSUES ENCOUNTERED THROUGH THE NIGHT PER TRANSMISSIONS SYSTEMS OPERATOR NURSE. NO COMPLAINS AT THIS TIME WILL MONITOR PT
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
--- NOTE | 2020-01-03 19:13 | NUR ---
PT SUMMARY: PT FAILED BARIUM SWALLOW TEST WAS KEPT NPO, DR RAMOS DID TALK TO THE PT ABOUT HER WISHES REGARDING RISKS OF NOT GETTING NUTRITION ORALLY AND POSSIBLY PUTTING PEG TUBE, PT DOES NOT CONSIDER ANYMORE INVASIVE PROCEDURE AT THIS POINT, DIET RESUMED TO PUREE HONEY THICK PER DR RAMOS PER PT WISH WELL SINCE SHE ONLY DRINKS ENSURE. PALLIATIVE CARE WAS CALLED REGARDING THE ISSUE, SON WAS CONTACTED WAS ALSO SUPPORTIVE OF PT'S WISHES BUT PT WOULD LIKE PALLIATIVE CARE NURSE TO COME BACK TOMORROW TO DISCUSS THE ISSUES AGAIN WITH THE PRESENCE OF HER SON. PT REMAINS FULL CODE AT THIS TIME. BP WAS ELEVATED THIS AFTERNOON TO 189 SYSTOLIC OREDER RECEIVED FOR IV LABETALOL 10MG IF BP SYSTOLIC IS >175 TREND DOWN TO 180 AFTER 30 MINS, WAS ADDRESSED TO BULK PICKER NURSE. PT WORKED WITH PHYSICAL AND OCCUPATIONAL THERAPY PT REMAINED IN SINUS RHYTHM. NO OTHER ISSUES ENCOUNTERED, PT IN BED RESTING CALL LIGHTS IN REACH REPORT TO ONCOMING SHIFT
--- NOTE | 2020-01-04 05:19 | NUR ---
PT RESTED COMFORTABLY THROUGH THE NIGHT. ALERT AND ORIENTED WEANED DOWN TO 1LNC OVERNIGHT - SATS REMAIN >90% PLACED PT BACK ON TELE PER NURSING PROTOCOL FOR LABETALOL PUSH FOR HIGH BP, STILL RUNNING NORMAL SINUS INCONTINENT X3 NO BM NO C/O PAIN CALL LIGHT WITHIN REACH, BED IN LOWEST POSITION. WILL CONTINUE TO MONITOR.
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
--- NOTE | 2020-01-04 15:32 | NUR ---
Spiritual care visit conducted. Patient is sitting up in bed and alert. Patient tells me that she is doing better but it is slow going. She explains about her taoism and how they help with her bill paying, give her a ride to taoism and help with meals at times. Patient's IV line is not cooperating so I cut my visit short, but conclude the visit with prayer. Patient responds well and shows signs of of an elevated mood. I will continue to remain available to patient and family.
--- NOTE | 2020-01-04 17:41 | NUR ---
SHIFT SUMMARY. PT IS ALERT AND ORIENTED EXPRESSES SADNESS RELATED TO HER ILLNESS. THIS AFTERNOON. FAMILY, LOCO, PALLITIVE CARE AND PT DISCUSSED OPTIONS AND HER PLAN. IT WAS DECIDED TO NOT PLACE PEG TUBE AND CODE STATUS WAS ADDRESSED. PT DOESN'T HAVE MUCH OF AN APPETITE AND REQUIRES ASSISTANCE WHEN EATING. PT REMAINS INCONTINENT OF URINE. PT CONTINUES TO BE HYPERTENSIVE, DISCUSSED WITH DR LORENZO, SEE PRN MEDS ON EMAR. TELEMETRY HAS SHOWN PT TO BE IN SINUS RHYTHM WITH 1ST DEGREE AVB. LUNGS ARE DIMINISHED AND PT ON 1L NC TO KEEP SPO2 >92%. OTHER VITALS HAVE REMAINED STABLE.
--- NOTE | 2020-01-04 21:37 | NUR ---
TRANSFER NOTE CALLED AND GAVE REPORT TO RASHIDA ON MEDICAL FLOOR AT 2129. PT IS ALERT AND ORIENTED. VSS. TELEMETRY READS SR 1ST DEGREE BLOCK, HR 90'S. SPO2 >92% ON ROOM AIR. POWERGLIDE IN L ARM, POSITIONAL, FLUSHES BUT DOES NOT DRAW. IV IN L FORARM, FLUSHES NICELY. PT STATES NO PAIN AT THIS TIME. PT IS INCONTINENT, DRY ATTENDS IN PLACE. PT TO TRANSFER BY BED AT 2144.
--- NOTE | 2020-01-05 04:08 | NUR ---
SUMMARY PT ARRIVED TO FLOOR FROM PCU IN NO DISTRESS. PT HAS SLEPT SINCE ARRIVING TO FLOOR. MUSICAL THERAPIST CALLED AND INFORMED THAT PT RATE IS INCREASEING. WCTM AND TX HRT ORDERED PER EMAR. NO OTHER ISSUES NOTED. PT CURRENTLY SLEEPING IN NO DISTRESS. CALL LIGHT IN REACH.
[2020-01-05 04:39] LABS: Anion Gap 7 mmol/L (6-16); Blood Urea Nitrogen 14 mg/dL (8-24); Bun/Creatinine Ratio 27.6 (12.0-20.0); CO2, Blood 29 mmol/L (21-32); Calcium, Blood 8.7 mg/dL (8.5-10.1); Chloride, Blood 105 mmol/L (98-108); Creatinine, Blood 0.51 mg/dL (0.40-1.00); Glomerular Filtration Rate >60 (60-); Glucose, Blood 82 mg/dL (70-99); Sodium, Blood 141 mmol/L (136-145)
--- NOTE | 2020-01-05 06:36 | NUR ---
A-FIB PT TX W/ LOPRESSORPER PER EMAR FOR RATE IN 140'S. TELE CALLED AND NOTED CHANGE FROM SR TO A-FIB W/ RATE 140'S. PT RATE DID DECREASE FOR A TIMEBUT RETURNED. DR LANDIS WAS CONTACTED AND HE ORDERED CARDIZEM. PT CURRENTLY IN ST IN 100'S WCTM AND PASS ON TO DAY RN.
--- NOTE | 2020-01-05 07:29 | NUR ---
HR TRENDING UP CALL FROM [employer], ZEB THIS AM ABOUT HR TRENDING UP INTO THE 130S. VITALS TAKEN HR UP IN THE 140S. DR. BUTLER NOTIFED OF EVENTS. STATES SHE WILL LOOK THROUGH CHART AND PLACE NEEDED ORDER.
--- NOTE | 2020-01-05 15:01 | NUR ---
Spiritual care visit conducted. Patient and I chat for a minute and then TUBE REPAIRER, Fernandez, comes in to do patient rounding. I help with communication (as patient is difficult to understand at times) while Fernandez goes through his survey. I then talk with patient about her nightmares, her concerns about going to a rehab. facility and her fears of being alone. Patient has a bit of a coughing spell and RNRosettae comes in a calmly talks patient through it and gives her oxygen until her O2 levels come into range. Patient holds my hand through the coughing then squeezes my hand and asks if I could just sit with her for awhile. I sit with patient and provide a calming presence, prayer and some levity. After some time patient then need a bed change and patient called for assistance which came quickly. I left staff to manage patient from there. Patient responds well to the spiritual care visit and shows signs of reduced worry and fear.
--- NOTE | 2020-01-05 15:27 | NUR ---
HTN PT HAS ELEVATED BP THIS AFTERNOON. DR. RAMOS CALLED & INFORMED ABOUT PRESSURE AND ASKED FOR CLARIFICATION ON ORDER. LABETALOL WAS ORDERED BUT DC'ED DUE TO PT HAVING AN EPISODE OF BRADYCARDIA WHILE SLEEPING EARLIER IN THE SHIFT. DR. RAMOS ORDER HYDRALAZINE FOR SBP OVER 180 AND DC'ED LABETALOL.
--- NOTE | 2020-01-05 15:30 | NUR ---
HR TRENDED DOWN PT HR TRENDED DOWN TO THE MID 50S AND 60S PER STORAGE ARCHITECT. PT FOUND SLEEPING. PT WOKE UP AND HR RETURNED TO THE 70S. WILL CONTINUE TO MONITOR.
--- NOTE | 2020-01-05 16:22 | NUR ---
UNABLE TO TOLERATE MOTRIN OR MEALS PT UNABLE TO TOLERATE MOTRIN SUSPENSION. PT TOOK ONE SPOONFUL. APPROX 30MG AND STATED IT BURNED TOO MUCH WHEN SHE TRIED TO SWALLOW. THEN REFUSED THE REST. PT REFUSED TYLENOL. PT CONTINUES TO REFUSE MEALS. PT HAS HAD APPROX 4 BITES OF APPLESAUCE T/O THE DAY. PT STATES "I CANT STAND THE THOUGHT OF EATING ANYTHING."
--- NOTE | 2020-01-05 16:48 | NUR ---
SHIFT SUMMARY/TELE DC'ED. PT REFUSING TO EAT MEALS AND RELUCTANT TO TAKE MEDICATIONS. SEE PREVIOUS NOTE. DR. RAMOS CAME TO TAKE WITH PT SON ABOUT CONCERNS FOR THE PATIENT AND HOW SHE CONTINUES TO REFUSE NUTRITION. DR. RAMOS TAKED TO PT SON ABOUT COMFORT CARE AND HOSPICE. PT SON, CLAIRE, STATED "HE JUST WANTS WHAT SHE WANTS". DR. RAMOS ORDERED TO DC TELE AT THIS TIME. PALLIATIVE CARE TO MEET WITH PT AND SON TOMORROW TO DISCUSS POSSIBLE COMFORT CARE OR HOSPICE MEASURES. OTHERWISE NO ACUTE CHANGES IN ASSESSMENT AT THIS TIME. FOAM PLACED TO MATTRESS FOR COMFORT. PT HAD ONE MEDIUM FORMED BM AND MULTILE LOOSE STOOLS AFTER. PT RUNING AFIB IN THE 70-80S PRIOR TO DCING TELE. PT REMAINS HYPERTENSIVE AFTER HYDRALAZINE WAS GIVEN. DR. RAMOS AWARE. WILL CONTINUE TO MONITOR UNTIL TURNOVER IS COMPLETE.
--- NOTE | 2020-01-05 20:44 | NUR ---
BLOOD PRESSURE PT'S BLOOD PRESSURE REMAINS HYPERTENSIVE THIS EVENING AT 182/69, HEART RATE 84. PRN APRESOLINE GIVEN BY DAY RN WITH NO EFFECT. DAY RN STATED THAT THERE WERE DISCUSSIONS OF PT TRANSITIONING TO COMFORT CARE BUT THIS HAS NOT HAPPENED. NOTIFIED JOHNATHON ELECTRIC BLANKET WIRER. PT IS ASYMPTOMATIC AT THIS TIME. JOHNATHON STATED TO NOTIFY HER IF PT BECOMES SYMPTOMATIC. OTHERWISE NO NEW ORDERS AT THIS TIME.
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
[2020-01-06 05:44] LABS: Anion Gap 7 mmol/L (6-16); Blood Urea Nitrogen 17 mg/dL (8-24); Bun/Creatinine Ratio 37.9 (12.0-20.0); CO2, Blood 27 mmol/L (21-32); Calcium, Blood 8.3 mg/dL (8.5-10.1); Chloride, Blood 109 mmol/L (98-108); Creatinine, Blood 0.45 mg/dL (0.40-1.00); Glomerular Filtration Rate >60 (60-); Glucose, Blood 82 mg/dL (70-99); Potassium, Blood 3.2 mmol/L (3.5-5.5); Sodium, Blood 143 mmol/L (136-145)
--- NOTE | 2020-01-06 10:51 | NUR ---
Pt resting tolerating Am care. Plan is still rehab. Nursing reports one of her daughters called upset wanting information. Spoke with pt about calling her back. She was not wanting us to call at this time. Advised nusing if she calls again will assist with respecting and protecting pt privacy and supporting this diatraught family.
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
--- NOTE | 2020-01-07 04:36 | NUR ---
SHIFT SUMMARY PT A/O X 4. REMAINS WEAK AND FATIGUED. AGREED TO TAKE SEVERAL ORAL MEDICATIONS FOR HTN BUT OTHERWISE REFUSED ANY ORAL INTAKE. ORAL CARE COMPLETED THROUGHOUT THE NIGHT. PT CONTINUED TO BE HYPERTENSIVE THIS EVENING. SEVERAL CALLS MADE TO SCIENTIFIC SPECIALIST HOSPITALIST WITH NEW MEDICATIONS ORDERED EVENTUALLY RESULTING IN PT BEING PLACED BACK ON TELEMETRY AND RECIEVING A DOSE OF IV LABETALOL BEFORE PT'S BLOOD PRESSURE BEGAN TO DECREASE. REMAINS HIGH AT 162/56, IMPROVED FROM SYSTOLIC IN THE 190'S. TELEMETRY READING SR IN THE 70'S. PT DENIED ANY PAIN. CONTINUED INCONTINENCE. ATTENDS ON. PT TURNED AND CHANGED THROUGHOUT THE NIGHT. PT SLEPT THROUGHOUT THE NIGHT WHEN NOT BEING WOKEN BY STAFF. ASIDE FROM HTN, PT'S VITAL SIGNS STABLE. PT RESTING IN BED AT THIS TIME. WILL CONTINUE TO MONITOR AND REPORT TO DAY RN.
[2020-01-07 05:49] LABS: Anion Gap 8 mmol/L (6-16); Blood Urea Nitrogen 16 mg/dL (8-24); Bun/Creatinine Ratio 33.5 (12.0-20.0); CO2, Blood 27 mmol/L (21-32); Calcium, Blood 8.3 mg/dL (8.5-10.1); Chloride, Blood 108 mmol/L (98-108); Creatinine, Blood 0.48 mg/dL (0.40-1.00); Glomerular Filtration Rate >60 (60-); Glucose, Blood 78 mg/dL (70-99); Potassium, Blood 3.1 mmol/L (3.5-5.5); Sodium, Blood 143 mmol/L (136-145)
--- NOTE | 2020-01-07 14:32 | NUR ---
Spiritual care visit conducted. Patient tells me that she is doing better and getting stronger. She says that she sat on EOB for the first time in awhile. I educate patient on how to work the rm phone, listen empathically and provide prayer. Patient responds well and shows signs of an elevated mood.
--- NOTE | 2020-01-07 17:12 | NUR ---
SHIFT SUMMARY- PT IS A/O, PLESANT AND COOPERATIVE. PT BP HAS BEEN ELEVATED THIS SHIFT DISCUSSED CHANGE OF ORAL MEDICATION WITH THE PROVIDER. SHE IS ONLY TAKING SMALL BITES OF FOOD. SHE SLEPT FOR MUCH OF THIS SHIFT. SHE WORKED WITH PT THIS MORNING AND SAT AT THE EDGE OF THE BED. HER SON CAME IN AND DISCUSSED PLAN FOR PT WITH PT AND PROVIDERS, ALONG WITH THE PALLATIVE CARE NURSE. PLAN IS FOR POSSIBLE DISCHARGE FRIDAY ON HOSPICE TO [facility].
--- NOTE | 2020-01-08 04:41 | NUR ---
AIRCRAFT LAY OUT WORKER SUMMARY ALERT AND ORIENTED. DENIES PAIN AT THIS TIME. APPEARED TO SLEEP T/O NIGHT. BP REMAINS ELEVATED, PRN APRESOLINE GIVEN. NO ACUTE CHANGES NOTED. BED IN LOWEST POSITION WITH CALL LIGHT IN REACH. WILL CONTINUE TO MONITOR AND REPORT TO ONCOMING RN.
--- NOTE | 2020-01-08 15:18 | NUR ---
SHIFT SUMMARY PT RESTING QUIETLY AT START OF SHIFT, HF. VERY WEAK AND FRAIL. MEDS CRUSHED IN APPLESAUCE, PER PT REQUEST. HX OF HTN AND A-FIB W/RVR. BP MEDS ADMIN; SEE CHART. PER SHIFT REPORT, PT TO D/C ON TO [facility] ON FRIDAY. PT ASSISTED WITH ALL MEALS; VERY SM BITES AT A TIME AND ONLY A FEW BITES TOTAL. PT/OT IN TO SEE PT TODAY; MINIMAL ASSIST FROM PT. EDEMA TO ALL EXTREMITIES. IV TO LFA STARTING TO LEAK AT TIMES; NEW IV TO BE PLACED. NO C/O. DENIED FURTHER NEEDS. CALL LT IN REACH.
--- NOTE | 2020-01-09 04:09 | NUR ---
BENCH EXAMINER SUMMARY ALERT AND ORIENTED. APPEARED TO SLEEP MOST OF THE NIGHT. DENIES PAIN OR DISCOMFORT. BREATHING IS UNLABORED. Q2 REPOSITIONING. NO ACUTE CHANGES AT THIS TIME. BED IN LOWEST POSITION WITH CALL LIGHT IN REACH. WILL CONTINUE TO MONITOR AND REPORT TO ONCOMING RN.
--- NOTE | 2020-01-09 15:32 | NUR ---
SHIFT SUMMARY PT AWAKE AT START OF SHIFT, WATCHING TV. NO C/O. PT ABLE TO EAT A FEW MORE BITES OF BREAKFAST AND LUNCH THAN SHE HAS BEEN. STILL VERY WEAK AND FRAIL. INCONTINENT OF URINE. TURNED AND CHANGED NEEDED. DR DUFF NOTIFIED TO CLARIFY C/C ORDERS. DR DUFF REVIEWED CHART. NEW ORDERS PLACED. PT'S SON IN TO SEE PT EARLIER TODAY WELL. BOTTOM DENTURES PLACED IN "BLACK PURSE" PER PT REQUEST, SHE HAD MISPLACED THEM PREVIOUSLY AND DIDN'T WANT TO LOOSE THEM AGAIN. PT REPORTED THAT SHE IS UNABLE TO WEAR THEM AT THIS TIME D/T A COUPLE OF SORES IN HER MOUTH. PT ON PUREE DIET AT THIS TIME. PER REPORT, PT TO D/C ON HOSPICE TOMORROW. DENIED FURTHER NEEDS. CALL LT IN REACH.
--- NOTE | 2020-01-09 20:00 | NUR ---
CURRENTLY SITTING UP IN BED. ABLE TO TOLERATE SMALL BITES. DENIES PAIN AT THIS TIME. BREATHING IS UNLABORED. BED IN LOWEST POSITION WITH CALL LIGHT IN REACH. WILL CONTINUE TO MONITOR.
--- NOTE | 2020-01-09 22:00 | NUR ---
CURRENTLY SITTING UP IN BED. DENIES PAIN AT THIS TIME. REPOSITIONED FOR COMFORT. BED IN LOWEST POSITION WITH CALL LIGHT IN REACH. WILL CONTINUE TO MONITOR.
--- NOTE | 2020-01-10 | NUR ---
PT CURRENTLY APPEARS TO BE SLEEPING IN BED AT THIS TIME. NO ACUTE DISTRESS NOTED. BREATHING IS UNLABORED. BED IN LOWEST POSITION WITH CALL LIGHT IN REACH. WILL CONTINUE TO MONITOR.
--- NOTE | 2020-01-10 02:00 | NUR ---
CURRENTLY SLEEPING IN ROOM AT THIS TIME. REPOSITIONED SLIGHTLY. NO ACUTE DISTRESS NOTED. BREATHING IS UNLABORED. BED IN LOWEST POSITION WITH CALL LIGHT IN REACH. WILL CONTINUE TO MONITOR.
--- NOTE | 2020-01-10 04:00 | NUR ---
APPEARS TO BE SLEEPING AT THIS TIME. ATTENDS CHANGED PREVIOUSLY, PT ABLE TO ASSIST. DENIED PAIN AT THAT TIME. BREATHING IS UNLABORED. BED IN LOWEST POSITION WITH CALL LIGHT IN REACH. WILL CONTINUE TO MONITOR.
--- NOTE | 2020-01-10 04:49 | NUR ---
BULL DRIVER SUMMARY ALERT AND ORIENTED. APPEARED TO SLEEP MOST OF THE NIGHT. REPOSITIONING TOLERATED. DENIES PAIN, BREATHING IS UNLABORED. NO ACUTE CHANGES AT THIS TIME. BED IN LOWEST POSITION WITH CALL LIGHT IN REACH. WILL CONTINUE TO MONITOR AND REPORT TO ONCOMING RN.
--- NOTE | 2020-01-10 06:00 | NUR ---
CURRENTLY SLEEPING IN BED AT THIS TIME. NO ACUTE DISTRESS NOTED. BREATHING IS UNLABORED. BED IN LOWEST POSITION WITH CALL LIGHT IN REACH. WILL CONTINUE TO MONITOR.
--- NOTE | 2020-01-10 08:47 | NUR ---
Patients attends were changed so she is clean and dry. Patient was able to assist with the attneds change by lifitng her bottom up. She ate 50% of a geltain cup for breakfast with assistance of feeding this morning.
--- NOTE | 2020-01-10 11:56 | NUR ---
Pal care note - Summary of two visits and two case conferences. Spoke with RN, DR, PT, patient and Pal Care RN who saw pt yesterday. Pt expressed to her Dr and RN that she would like to restart therapy and receive limited tx instead of comfort care. When I last saw Parris last week, she was declining all medications and PO intake due to discomfort/pain and fear with swallowing. She has increased PO intake, although it is still only bites per meal and t/o the day. T/C to Dr and order obtained to d/c comfort care status and restart PT/OT eval and treat. I saw pt earlier when she was asleep. She did not wake to voice or gentle touch. She remains very deconditioned, fatigued and sleeping a lot per RN. She did not exhibit nonverbal indicators of pain or distress at that time. Second visit when PT was starting eval. Pt verbalized she was glad to try again and that comfort care orders had been discontinued for now. Pt reports she is not experiencing pain. CM note read and plan currently in place to pursue rehab staty. to update pt's son, per Dr Vazquez.
--- NOTE | 2020-01-10 13:23 | NUR ---
Patient ate 25% of lunch this shift with assistance. Patients attends were changed and she is clean and dry.
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
--- NOTE | 2020-01-10 18:38 | NUR ---
SHIFT SUMMARY- PT IS A/O, PLESANT AND COOPERATIVE. PT STARTED THE DAY ON COMFORT CARE BUT EXPRESSED TO THE DR THAT SHE DID NOT WANT TO BE ON COMFORT CARE OR GO HOME ON HOSPICE. DISCUSSED THIS WITH PALLATIVE CARE NURSE. THERE WAS SOME DISCUSSION WITH SPEECH THERAPY ABOUT HER PROGNOSIS IF SHE WERE TO COME OFF COMFORT CARE AND BECAUSE OF HER HIGH RISK OF ASPRATION THERE IS NOT A GOOD PROGNOSIS. THEY DISCUSSED THE POSIBILITY OF PLACING A PEG TUBE. SHE IS UNDECIDED AT THIS TIME. PT WAS TAKEN OFF COMFORT CARE AND PLACED NPO.
--- NOTE | 2020-01-11 06:19 | NUR ---
SHIFT SUMMARY- PT. A&O, ON BEDREST. INCONT, ATTENDS IN PLACE. LAST NIGHT PT. HAD HIGH BP. NOTIFIED DR. MATHEWS, RECEIVED ORDER FOR PRN LABETALOL. PER PROTOCOL PT. PLACED ON TELE MONITOR. RECHECK OF BP WNL, BUT HR ELEVATED TO 135-145. DR. MATHEWS MADE AWARE. ORDER FOR 1X DOSE OF LOPRESSOR GIVEN. PT. MEDICATED PER EMAR, TOLERATED WELL. REPEAT HR 92. PT. HAS NO COMPLAINTS. RESTING QUIETLY IN BED, NO APPARENT DISTRESS NOTED. CALL LIGHT WITHIN REACH AND SIDE RAILS UPX2. WILL CONT TO MONITOR.
--- NOTE | 2020-01-11 11:34 | NUR ---
Summary of long conversation with pt and Street Inspector Ced re: goals of care and pt's wishes. Pt's top priority is to be where she can have visitors and have the help with care she needs. She would like us to research with DAVID and her friend Alysia, if going to [facility] with a hospital bed and some addtional care giving and Hospice care is possible. This would be her first choice. She still does not want a feeding tube and verbalizes understanding of why we cannot allow her PO intake in the hospital unless she is on comfort care. Pt feels she is benefiting from her IV fluids and current tx here so she would like to continue with this care until Hospice DME and care can be arranged at either Alysia's home or an adult foster home or other community based setting where she would be allowed visitors from family, friends, roman catholic and hospice caregivers. We reviewed typical hospice care, ie no return to hospital for tx, regular visits from RN, CLOCK REPAIRER, REHABILITATION CONSULTANT, volunteer and manager credit risk, aggressive s/s management, allowing pt to take her normal PO meds at her expense, no IV fluids, nutrition, antibiotics or IV therapy of any kind. Hospice coverage of DME, visiting staff and medications for comfort, support to her and her family and friends caring for her. Pt verbalized understanding and asked good questions re: the level of care she may need going forward and as she declines. We discussed that hospice neither prolongs or expedites her body's failing but does work at managing symptoms and supporting her in matters that she identifies as important to her quality of life. Pt acknowledges that decision making is not an easy thing for her. I identified her strong suit in being able to verbalize what IS most important to her and to state her wishes. We formulated the plan based on that and pt is agreeable and requesting help with putting that plan in place at this time. Street Inspector Tim stayed to pray and talk with pt further. Our conversation lasted approx 45 minutes. I updated RN, DR, PT and CM on plan of care after visit. We verified that the local [facility] are not allowing hospice staff to visit patients in their facilities due to COVID precautions. This eliminated any NH for EOL/hospice care setting for Parris, if she has another choice. there with hospice is possible
--- NOTE | 2020-01-11 13:08 | NUR ---
Spiritual care visit conducted. Patient is sitting up in bed and resting but easily awakens to the sound of her name. Palliative Care RN, Carmen, conducts the visit with me. Carmen addresses the medical aspects of the conversation while I assist by keeping the conversation warm and kind and restating information to give patient time to absorb the information and hear it several different ways. Patient states that she does not want to be seperated from friends and family and so would prefer to avoid a reheb or SNF facility where the COVID-19 restrictions do not allow for visitors. Patient states that she would prefer to put soft foods in her mouth and is not in favor of a feeding tube. Patient concludes that the best course of action would be 1. Go to stay at a friends house with hospice support and 2. or next best choice is an adult foster care on hospice. After Carmen leaves patient says that she has peace about those 2 choices. Patient repeats back all that is covered in our conversation and then I provide prayer, normalize patient's concerns and reinforce helpful attitudes and ways of framing the information. I will continue to remain available to patient and family.
--- NOTE | 2020-01-11 17:19 | NUR ---
T/C received with request for me to meet pt's Optical Instruments Supervisor, Last name, Lm which I did. Prior to Optical Instruments Supervisor's arrival I asked for Parris's permission to answer any questions he had about her condition and care. Parris gave permission and wants her hydraulic bull riveter operator to be involved in her care and d/c planning. Optical Instruments Supervisor arrived and we spent nearly an hour discussing Parris's care, condition, options for care and options for discharge. He would like to speak with Parris's healthcare social worker tomorrow to help with d/c planning. Optical Instruments Supervisor Lm' number is [phone]. He and Parris agree that her friend Alysia's home would not be ideal for her to go to. Son, Judah, also voiced great concern about this. has not met Judah but will, at pt's request, call Judah to offer assistance with finding a suitable place for Parris to receive care and update him on our conversation. After an extensive review of Benefits vs burden of hospice services Parris and indicate they would like her to be d/c'd with Hospice support, in whatever setting she is able to be released to. Parris cont to state a top priority for her is to be where she can have visitors. A family well known to Parris, in the confucianism, has indicated that they may be able to care for Parris in their home. If this is not an option after updates them on what Parris's current care needs are we will research other options. I informed Parris and that her CM is working with [employer] on benefits available to her and that they can research other community based settings such as residential or adult foster care facilities that may have openings. Update on this family conference given to pt's RN, Dr Lucio and my Pal Care coworker who will follow up tomorrow and pass on Pastor Amato' contact information to the healthcare social worker following Parris tomorrow. Pastor Amato is going to call the [facility] (confucianism friends) and pt's son Judah to update and will be in touch with pt later this evening or tomorrow to let Parris know if the Marco Antonio's home is an option for her, even for a temporary care setting while looking for a more permanent setting.
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
--- NOTE | 2020-01-12 17:43 | NUR ---
SHIFT SUMMARY PT AOX4, ON TELE- NSR @80S. ON O2 1L; NO C/O PAIN, N&V AND SOB. PT REFUSED PHYSICAL THERAPY TODAY; PT STILL AWAITS FOR PLACEMENT, POSSIBLY DISCHARGE TO HOSPICE WHEN APPROPRIATE. OTHERWISE, NO ACUTE CHANGES. BED IS IN THE LOWEST POSITION; CALL LIGHTS WITHIN REACH; AND WILL CONT MONITOR.
--- NOTE | 2020-01-13 07:04 | NUR ---
SHIFT SUMMARY PATIENT ALERT AND ORIENTED. PATIENT QUIET AND A LITTLE WITHDRAWN OVERNIGHT BUT COOPORATIVE WITH CARE. SHE HAD NO COMPLAINTS OF PAIN OR SHORTNESS OF BREATH. IV PATENT AND INFUSING. BED IN LOWEST POSITION WITH WHEELS LOCKED AND ALARM ON. CALL LIGHT WITHIN REACH. REPORT GIVEN TO ONCOMING RN.
--- NOTE | 2020-01-13 12:30 | NUR ---
Called to meet with patient and her son. Pt and son discussing getting benefits and plan of care. Assited son in filling out [employer] papaerwork. Parris showed us her lisence, SS card and medicare cared. pt asked about getting her son POA. She states she put his name on her checking. therputic reassurance and time with pt to reassure her we will find a good plan to help her and that she is safe. Review of case with healthcare network consultant and chaplian for support. plan is to get her back on comfort care.
--- NOTE | 2020-01-13 16:17 | NUR ---
SHIFT SUMMARY PATIENT NPO (FAILED SWALLOW EVAL) WITH COMFORT CARE ORDERS. DISCUSSED WITH DR. Sabina RAMIREZ, WHO GAVE THIS RN A VERBAL ORDER TO D/C COMFORT CARE ORDERS, POST EXTENSIVE CONVERSATION WITH PATIENT REGARDING PLAN OF CARE. PATIENT DOES NOT WANT PEG PLACEMENT, AND PLANS TO D/C WITH HOSPICE, BUT WISHES TO CONTINUE WITH IV HYDRATION, AND DOES NOT WANT TO COMFORT CARE AT THIS TIME. THIS RN UNABLE TO D/C COMFORT CARE ORDERS. KNITTING MACHINE MECHANIC, GUILLERMO NOTIFIED, AND ALSO ATTEMPTED. CALLED DR. RAMIREZ @3515 TO NOTIFY OF INABILITY TO D/C ORDER, AND DR DUFF ANSWERED, WHO STATED THAT HE WOULD SEE THE PT AND DISCUSS WITH HER PRIOR TO CHANGE IN ORDERS. Q2 HOUR TURNS. ORAL CARE PROVIDED Q4 HOURS. PALLIATIVE MET WITH SON, AND NOTIFIED OF POTENTIAL CHANGE IN ORDERS.
--- NOTE | 2020-01-14 06:07 | NUR ---
SHIFT SUMMARY PATIENT ALERT AND ORIENTED. WAS VERY QUIET, BUT PLEASANT TO WORK WITH. PATIENT SLEPT WELL IN BED OVERNIGHT, HAD MINIMAL NEED. IV PATENT AND INFUSING. BED IN LOWEST POSITION WITH WHEELS LOCKED. CALL LIGHT WITHIN REACH. REPORT GIVEN TO ONCOMING RN.
--- NOTE | 2020-01-14 17:51 | NUR ---
SHIFT SUMMARY ORAL CARE Q4 HOURS. TURN Q2 HOURS WITH PILLOW SUPPORT. RE-ENFORCED SIMILARITIES BETWEEN COMFORT CARE AND HOSPICE CARE, PER PATIENT REQUEST. ALL QUESTIONS AND CONCERNS ANSWERED, WITH SON AT BEDSIDE. PATIENT STATES SHE IS STILL UNDECIDED AND DOES NOT WANT TO BE COMFORT CARE AT THIS TIME. CALLED DR. RAMIREZ AT 1745 TO NOTIFY OF SBP 193 AND 185 ON RECHECK, WELL NEED FOR COMFORT CARE ORDERS TO BE DISCONTINUED. PROVIDER STATED THAT SHE WOULD PLACE ORDERS.
--- NOTE | 2020-01-15 06:51 | NUR ---
GYM SUPERVISOR SUMMARY Parris sat up watching tv most of the night. Said this is what she did at home. Tolerating NPO status. Voiding 3 times pretty heavy diapers. Mepilex to mid back is intact, therefore not removed. sacral/coccyx area intact . no complaints of pain or discomfort
--- NOTE | 2020-01-15 10:38 | NUR ---
[facility] Care Visit - Son, Judah, standing at foot of the bed. Pt supine with hob elevated, O2 per nc with humidifier on. She denies pain or needs but displays nonverbal indicators of discomfort with movement, talking and swallowing. She states, "I just want to go home, or somewhere". Discussed current status with RN and CM on duty today. Pt asked if I would come back to visit later and I told her I would. She appears bored and listless, somewhat depressed. I asked about distracting activities. She states she cannot see well enough to read. I will offer to read aloud to her if she would like later today and also see if she would like to do some therapeutic coloring.
[2020-01-15 11:21] LABS: Anion Gap 3 mmol/L (6-16); Blood Urea Nitrogen 4 mg/dL (8-24); Bun/Creatinine Ratio 7.7 (12.0-20.0); CO2, Blood 33 mmol/L (21-32); Calcium, Blood 8.9 mg/dL (8.5-10.1); Chloride, Blood 107 mmol/L (98-108); Creatinine, Blood 0.52 mg/dL (0.40-1.00); Glomerular Filtration Rate >60 (60-); Glucose, Blood 109 mg/dL (70-99); Potassium, Blood 3.4 mmol/L (3.5-5.5); Sodium, Blood 143 mmol/L (136-145)
--- NOTE | 2020-01-15 16:15 | NUR ---
SUMMARY PT IS A/O X3, PLEASANT AFFECT. STATE NO PAIN/DISCOMFORT TODAY. SHE CONTINUES NPO AFTER FAILED SWALLOW EVAL/ST. DR TRAORE IN TO ASSESS THIS AM WHILE PT'S SON IN ROOM, QUESTIONS ANSWERED. PALLIATIVE CARE RN IN FOR SUPPORT. PT/FAMILY CONSIDERING HOSPICE/COMFORT CARE. IV D51/2NS w 20KCL @ 50 ML/HR CONTINUES. MOIST ORAL SWABS PROVIDED. PT IS WEAK HOWEVER STATE WILLING TO PARTICIPATE w PITER. ROTARY DRUM TANNER ASSIST HER TO SIT UP ON BEDSIDE TODAY. SBP ELEVATED 160-180'S, DR INCREASE CLONIDINE PTCH DOSE. PRN IV LEBETALOL GIVEN.
--- NOTE | 2020-01-15 19:00 | NUR ---
Second Pal Care visit today. Assisting RN with getting pt to sitting position the side of the bed for 10 minutes and repositioning/changing bed linens. Pt tolerated sitting for at least 10 minutes and said it felt good to do it. I read some prayers to her while she sat. Pt states her vision is not good enough for coloring, reading or even seeing TV well. Planned with her to return tomorrow to read aloud to her some more.
--- NOTE | 2020-01-16 05:51 | NUR ---
GROUND CREWMAN MISSION SUPPORT SUUMMARY Patient slept well all through the night. Unfortunately, she insisted on sitting almost strait up in bed. 3 large incont of urine. c/o gas bubble in anterior chest. moved arms up and around to try to disperse it, but patient insisted that she could get it to go if she just sat up. Skin on bottom remains intact with Mepilex in mid back to protect mole from shearing
--- NOTE | 2020-01-16 09:34 | NUR ---
Pal Care - I stopped to visit Parris. She was sound asleep. I will try again later. Per our plan, I brought some better reading material and will share that with her.
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
--- NOTE | 2020-01-16 18:06 | NUR ---
SUMMARY PT CONTINUES WEAK/FATIGUED, UNABLE TO BR WT W/O 1 ASSIST TO STAND HOWEVER SHE STATE DESIRE TO GET OOB, DESIRE TO STRENGTHEN HERSELF. WE ASSISTED HER TO STAND TODAY & TAKE SM STEPS TO RECLINER. VERY UNSTEADY REQUIRE 2 ASSIST w GB. SHE SAT UP FOR A COUPLE HRS THEN ASK BACK TO BED. CHAINMAN PROVIDE COMPLETE BEDBATH TODAY. PT CONTINUES NPO w IV D51/2NS w 20K+ @ 50 ML/HR. MOIST ORAL SPONGES PROVIDED. SHE DOES NOT COMPLAIN, PLEASANT/COOPERATIVE AFFECT HOWEVER SHE IS SOMEWHAT DEPRESSED R/T CURRENT DECONDITIONING & UNCERTAIN FUTURE. PALLIATIVE CARE RN IN TODAY TO PROVIDE SUPPORT. SHE HAS BEEN SR 60'S T/O DAY/TELE MX. SBP ELEVATED THIS AFTERNOON 180/67, PRN LEBETALOL 10MG IV GIVEN. 1+ EDEMA ANKLES, ENCOURAGED TO ELEVATE FEET. D/C PLAN CONTINUES UNCERTAIN @ THIS TIME.
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
--- NOTE | 2020-01-17 14:32 | NUR ---
ALERT. ORIENTED. COOPERATIVE. ONE PERSON ASSIST W/FWW AND GAITBELT TO CLOSE BY CHAIR. UP FOR SHORT TIME, THEN BACK TO BED. DENIES ANY PAIN. STILL NPO DUE TO SILENT ASPIRATION. TELE ON. IV INFUSING WITH GENTLE HYDRATION AT 50 CC/HR. CARE MANAGEMENT LOOKING FOR PLACEMENT. WCTM.
--- NOTE | 2020-01-17 17:31 | NUR ---
ALERT. ORIENTED. TELE ON AND PER TECH SR IN 70'S. IV PATENT AND RUNNING AT 50 ML/HOUR. NO ACUTE CHANGES. WCTM
--- NOTE | 2020-01-18 07:40 | NUR ---
SHIFT SUMMARY PATIENT ALERT AND ORIENTED. HAD NO COMPLAINTS OF PAIN OVERNIGHT AND WAS ABLE TO SLEEP WELL. IV PATENT AND INFUSING. BED IN LOWEST POSITION WITH WHEELS LOCKED AND ALARM ON. CALL LIGHT WITHIN REACH. REPORT GIVEN TO ONCOMING RN.
--- NOTE | 2020-01-18 17:13 | NUR ---
ALERT. ORIENTED. SLEEPING MOST OF SHIFT. ONE PERSON ASSIST TO CHAIR. PATIENT HAD DISCUSSION W/SON ABOUT ITEMS SHE WANTED TO KEEP IN HER HOUSE. IV INFUSING AT 50 ML/HR. DENIES ANY PAIN. UNLABORED RESPIRATIONS. TELE ON AND PER TECH SR. WCTM
--- NOTE | 2020-01-19 04:25 | NUR ---
SHIFT SUMMARY NO ACUTE CHANGES THIS SHIFT, NO C/O ANY KIND, SLEPT T/O SHIFT WAKING FOR BRIEF CHANGES AND REPOS THEN EASILY RETURNING TO SLEEP, PT SLEEPING AT THIS TIME, CALL LIGHT IN REACH, WILL CONT TO MONITOR UNTIL REPORT GIVEN TO DAY RN.
--- NOTE | 2020-01-19 15:45 | NUR ---
Spiritual care visit conducted. Patient talks about her concerns for placement. At the beginning of our conversation she was opposed to looking at any facility outside the area but by the end patient says, "Well, maybe I need to trust God for wherever I need to go." Patient admits to being a bit down today. I provide levity, reading of inspirational scriptures and prayer. Patient shows signs of an elevated mood. I will continue to try to help patient feel protected and at peace about her DC plan.
--- NOTE | 2020-01-19 16:57 | NUR ---
Review of pt needs with staff. brief theraputic visit with pt.
--- NOTE | 2020-01-19 17:48 | NUR ---
SHE HAS BEEN UP IN THE RECLINER 3 TIMES TODAY. SHE TRANSFERS WELL WITH 1 ASSIST. SHE IS WEAK BUT A&O AND VERY PLEASANT. SHE IS FRAGILE. SHE REMAINS NPO BECAUSE SHE IS NOT SAFE PER ST TO SWALLOW. HER ONLY COMPLAINT IS DRY MOUTH. SHE USES THE TOOTHETTES REGULARLY. IVF'S CONTINUE. THE SPRAY MACHINE OPERATOR SPENT TIME WITH HER TODAY. LATER HER SON WAS HERE AND STILL LATER WAS A INDUSTRIAL PHOTOGRAPHER FROM HER [employer] HERE TO VISIT WITH HER. TELE NSR WITH A FIRST DEGREE BLOCK. O2 ON 1L. NO SOB OR C/O PAIN.
--- NOTE | 2020-01-20 06:02 | NUR ---
SHIFT SUMMARY NO ACUTE CHANGES THIS SHIFT, NO C/O ANY KIND, SLEPT T/O THE NIGHT WAKING EASILY FOR BRIEF CHANGES & REPOS, A&O, ABLE TO VOICE NEEDS, SLEEPING AT THIS TIME, CALL LIGHT IN REACH, WILL CONT TO MONITOR UNTIL REPORT GIVEN TO DAY RN.
--- NOTE | 2020-01-20 16:15 | NUR ---
SHE WALKED WELL WITH PT IN THE CHAND THIS AFTERNOON. TELE DC'D TODAY. IVF'S CONTINUE. SHE HAS HAD NO COMPLAINTS. HER SKIN IS FREE OF ANY BREAKDOWN.
--- NOTE | 2020-01-20 19:10 | NUR ---
SHE SAT UP IN THE RECLINER CHAIR 2 OR 3 TIMES TODAY AND WALKED IN THE CHAND WITH PT. NPO WITH IVF'S. ORAL CARE DONE. NO COMPLAINTS. PLAN IS DISCHARGE TO [facility] ON HOSPICE EVENTUALLY WHEN MEDICAID IS OBTAINED.
--- NOTE | 2020-01-21 05:41 | NUR ---
SHIFT SUMMARY UP IN RECLINER AT SHIFT START UNTIL BEDTIME, BACK TO BED W/1 ASSIST, NO ACUTE CHANGES, NO C/O ANY KIND, SLEPT T/O THE NIGHT, SLEEPING AT THIS TIME, CALL LIGHT IN REACH, WILL CONT TO MONITOR UNTIL REPORT GIVEN TO DAY RN.
--- NOTE | 2020-01-21 09:30 | NUR ---
PT PLEASANT COOP A/O. DENIES PAIN. SOMEWHAT FLAT RESERVED. PT ASKING TO EAT. WILL SPEAK TO DR CALZADA STATUS. H/'R REG, NO MURMER NOTED. NO TELE. LUNGS CLEAR, RESP EASY, UNLABORED. ON 1 L O2. BT X4 LAST BM NOT KNOWN. VOIDS INCONT. ATTENDS IN PLACE. 1 ASST WITH FWW. BED IN LOW POSITION, CALL LITE IN REACH, CQALLS APPROP
--- NOTE | 2020-01-21 13:45 | NUR ---
Spiritual care visit conducted. Patient is sitting on a chair and alert. Patient excitedly tells me about the progress she is making with PT and OT and the how she has been able to take in small amounts of Ensure and water. Patient then tells me that "they" are trying to place her in [facility] and she states that she does not want to go to [facility]. She repeats that statement several different times during the visit. Patient tells me that she is going to work extra hard with PT so that maybe she could get strong enough to go anywhere else. Her hope is that she could go to an adult foster skilled nursing. I praise her for her spunk, drive and upbeat attitude. I also provide pastoral student services counselor and prayer. Patient seems to perk up when she gets to talk about God or has a time of prayer. I will coninue to work with patient on being open to the best plans that Care Management can do for her.
--- NOTE | 2020-01-21 18:05 | NUR ---
PT PLEASANT TODAY. DR PARSONS IN TO SEE PT. DID MOVE TO PUREE DIET. PT WANTING ICECREAM. SPOKE TO DR PARSONS. THIS IS OKAY. SHE WROTE ORDERS. PT UNDERSTANDING SWALLOWING ISSUES. IS IN CLOSE CONTACT WITH PT AND FAM. NO NEW CONCERNS AT THIS TIME. BED IN LOW POSITION, CALL LITE IN REACH, CALLS APPROP
--- NOTE | 2020-01-21 19:12 | NUR ---
spoke ot dr trinidad. she aware pt aspirating. is okay with some icecream and is talkig to pt and family about comfort care again.
--- NOTE | 2020-01-22 05:53 | NUR ---
SHIFT SUMMARY PT UP IN RECLINER AT START OF SHIFT, REQ TO TRANSFER TO BED (1 ASSIST) THEN SLEPT WELL T/O THE NIGHT, NO C/O ANY KIND, NO C/O ANY KIND, CALL LIGHT IN REACH, WILL CONT TO MONITOR UNTIL REPORT GIVEN TO DAY RN.
--- NOTE | 2020-01-22 11:53 | NUR ---
Spoke with Brad Robert. Yesica reports Pt is no longer wanting discharge to [facility] with hospice. Pt resting in recliner chair and denies pain at this time. Engaged in therapeutic listening as Pt reports still wanting hospice just not [facility]. She expresses concerns on not being able to have visitors at [facility]. Pt reports wanting to be placed at an [facility] foster home with hospice in order to have friends and family visist. Pt reports no other concerns at this time. Spoke with Bedside RN Abigail, Brad Robert and relayed Pt's wishes. Yesica will discuss further with Pt. Palliative Care will remain available.
--- NOTE | 2020-01-22 18:39 | NUR ---
SHIFT SUMMARY MYLA ON COMFORT CARE NOW. INCONTINENT, CHANGING Q2 HOURS. UP IN CHAIR FOR MUCH OF THE DAY. AO1 TO TRANSFER BED TO CHAIR, CALLS APPROPRIATELY. DENIED PAIN. VERY LITTLE PO INTAKE, ALL HONEY THICK/PUREED. PT IS AWARE TO SIT UP FOR 30 MINUTES AFTER ALL PO INTAKE AND ALL ASPIRATOIN PRECAUTIONS. WCTM
--- NOTE | 2020-01-22 19:36 | NUR ---
RECEIVED BEDSIDE REPORT FROM COLBY RAMIREZ. NO NEEDS AT THIS TIME. WILL MONITOR AND PROVIDE CARE T/O SHIFT. CALL LT IN REACH.
--- NOTE | 2020-01-23 00:09 | NUR ---
PT RESTING QUIETLY. CALL LT IN REACH.
--- NOTE | 2020-01-23 02:09 | NUR ---
PT RESTING QUIETLY. CALL LT IN REACH.
--- NOTE | 2020-01-23 04:16 | NUR ---
SHIFT SUMMARY: COMFORT CARE PT. PT RESTED WELL T/O SHIFT. REQUIRED NO PRN'S. ALERT AND ABLE TO STATE NEEDS APPROPRIATELY. PT CHANGED AND REPOSITIONED AND WORE NECK COLLAR T/O SHIFT. NO ACUTE CHANGES. WILL CONTINUE TO MONITOR AND PROVIDE CARE UNTIL SHIFT REPORT. CALL LT IN REACH.
--- NOTE | 2020-01-23 17:38 | NUR ---
SHIFT SUMMARY NO ACUTE CHANGES. PATIENT IS ABLE TO MAKE NEEDS KNOWN. NO COMPLAINTS OF PAIN OR SOB OR OTHER COMPLAINTS TODAY. AWAITING SAFE DC ON HOSPICE
--- NOTE | 2020-01-24 00:46 | NUR ---
RECEIVED REPORT FROM COLBY ROSENTHAL. ASSUMED CARE OF PT.
--- NOTE | 2020-01-24 01:59 | NUR ---
PT RESTING QUIETLY. CALL LT IN REACH.
--- NOTE | 2020-01-24 04:23 | NUR ---
SHIFT SUMMARY: COMFORT CARE PT. PT RESTED WELL T/O SHIFT. NO COMPLAINTS OF PAIN OR NAUSEA. NO PRN'S GIVEN. NO DISTRESS NOTED. WILL CONTINUE TO MONITOR AND PROVIDE CARE UNTIL SHIFT REPORT. CALL LT IN REACH.
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
--- NOTE | 2020-01-24 18:31 | NUR ---
SHIFT SUMMARY PT ON COMFORT CARE. DENIES PAIN, SOB AND NV. PT UP TO CHAIR THIS MORNING AND HAS REMAINED IN CHAIR SINCE. ATTENDS CHANGED PRN. NO ACUTE CHANGES THIS SHIFT. BED IN LOW POSITION, CALL LIGHT WITHIN REACH.
--- NOTE | 2020-01-25 06:45 | NUR ---
SHIFT SUMMARY: COMFORT CARE. PT A/OX2-3. ABLE TO MAKE NEEDS KNOWN. T/F W/ 1 ASSIST TO BED. ORAL CARE COMPLETED. ENCOURAGED FLUID INTAKE THIS AM, PT REFUSED AT THIS TIME. PT DENIES PAIN. APPEARS COMFORTABLE. SLEPT WELL THROUGH MOST OF THE NIGHT. BED LOW, CALL BUTTON IN REACH. WILL CONT TO MONITOR.
--- NOTE | 2020-01-25 10:46 | NUR ---
PAL CARE COMFORT CARE VISIT - Pt denies pain. She appears fatigued, frail and depressed. We talked about what foods were tasting good and the cream of wheat on her breakfast tray was not. Planned with pt to come back later today for some reading aloud. She stated she would like that. CM working on placement with hospice at [facility], where they have stated her son could visit. Case conferenced with DANITZA and RN.
--- NOTE | 2020-01-25 15:20 | NUR ---
Attempted to visit to spend time reading to pt. She is sound asleep in her chair. I will try again later this afternoon if possible.
--- NOTE | 2020-01-25 16:31 | NUR ---
Returned to read to Parris. I read some from her bible and some essays. Towards the end of my visit her granddaughter called and they were having a good visit so I left.
--- NOTE | 2020-01-25 18:07 | NUR ---
SHIFT SUMMARY PT IS AO TO SELF. PT DENIES PAIN, N/V, ANXIETY, SOB. PT HAD A TOOL ROOM GEAR MACHINE OPERATOR/FRIEND IN TO VISIT TODAY AND MULTIPLE VISITS FROM PALLIATIVE CARE. PT IS AGREEABLE AND COOPERATIVE WITH CARE. ORAL INTAKE APPEARS TO BE IMPROVING. PT IS A ONE PERSON ASSIST WITH [facility]. PLAN IS TO DC TO [facility], UNKNOWN DATE. PT IN CHAIR FOR MEALS THIS SHIFT. PT IS IN CHAIR, CALL LIGHT IN REACH.
--- NOTE | 2020-01-26 05:27 | NUR ---
SHIFT SUMMARY PT SPENT FIRST PART OF THE EVENING UP IN RECLINER AND REQUESTED TO GO TO BED EARLY IN THE EVENING. PT SLEPT WELL THROUGH MUCH OF THE NIGHT. DENIED ANY PAIN. NO NONVERBAL S/S OF PAIN OR DISCOMFORT. PT FRAIL AND DECONDITIONED. INCONTINENT OF URINE. PT TURNED AND CHANGED NEEDED. ASSISTING WITH TURNING IN THE BED. NO ACUTE CHANGES THIS SHIFT. PT AWAITING PLACEMENT. APPEARED COMFORTABLE THROUGHOUT THE NIGHT.
--- NOTE | 2020-01-26 08:07 | NUR ---
LATE REDUCER SUMMARY 69901/17/20 Patient again slept sitting almost straight up in bed throughout the night. She is A&OX3, and was questioning what the was going to do after "this". Very pleasant and cooperative with care with except for not wanting to let us lay her on her side. Skin continues to remain intact despite her not wanting to lay down
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
--- NOTE | 2020-01-26 18:32 | NUR ---
Care done by CNA2 student. HONORIO
--- NOTE | 2020-01-26 19:10 | NUR ---
SHIFT SUMMARY PT IS AO TO SELF AND FAMILY. PT DEMONSTRATES SOME CONFUSION ABOUT COMFORT CARE STATUS. PT DENIES PAIN, N/V, SOB. PT AMBULATED IN ROOM WITH THIS RN X1 THIS SHIFT. PT IS AWAITING PLACEMENT TO [facility]. PT IN CHAIR FOR MEALS THIS SHIFT. PALLIATIVE CARE IN TO SEE PT. PT IS IN CHAIR, CALL LIGHT IN REACH.
--- NOTE | 2020-01-27 01:09 | NUR ---
COMFORT CARE CURRENTLY SITTING UP IN CHAIR. DENIES PAIN AT THIS TIME. BREATHING IS UNLABORED. CALL LIGHT IN REACH, WILL CONTINUE TO MONITOR.
--- NOTE | 2020-01-27 01:11 | NUR ---
COMFORT CARE TRANSFERRED FROM CHAIR TO BED AND POSITIONED IN SEMI-FOWLERS. APPEARS TO BE SLEEPING IN BED AT THIS TIME. BREATHING IS UNLABORED. BED IN LOWEST POSITION WITH CALL LIGHT IN REACH. WILL CONTINUE TO MONITOR
--- NOTE | 2020-01-27 01:17 | NUR ---
COMFORT CARE REPOSITIONED FOR COMFORT. DENIES PAIN AT THIS TIME. BREATHING IS UNLABORED. BED IN LOWEST POSITION WITH CALL LIGHT IN REACH. WILL CONTINUE TO MONITOR.
--- NOTE | 2020-01-27 02:00 | NUR ---
COMFORT CARE REPOSITIONED FOR COMFORT. DENIES PAIN AT THIS TIME. BREATHING UNLABORED. BED IN LOWEST POSITION WITH CALL LIGHT IN REACH. WILL CONTINUE TO MONITOR AND REPORT TO ONCOMING RN.
--- NOTE | 2020-01-27 04:00 | NUR ---
COMFORT CARE CURRENTLY APPEARS TO BE SLEEPING. BREATHING IS UNLABORED. NO ACUTE DISTRESS NOTED. BED IN LOWEST POSITON WITH CALL LIGHT IN REACH. WILL CONTINUE TO MONITOR.
--- NOTE | 2020-01-27 05:38 | NUR ---
C T TECH SUMMARY APPEARED TO SLEEP T/O SHIFT. DENIES PAIN. REPOSITONING Q2 FOR COMFORT. BREATHING UNLABORED. NO ACUTE CHANGES AT THIS TIME. BED IN LOWEST POSITION AND WILL CONTINUE TO MONITOR AND REPORT TO ONCOMING RN.
--- NOTE | 2020-01-27 06:00 | NUR ---
COMFORT CARE CURRENTLY APPEARS TO BE SLEEPING. REPOSITIONED FOR COMFORT. DENIES PAIN. BREATHING UNLABORED. BED IN LOWEST POSITION WITH CALL LIGHT IN REACH. WILL CONTINUE TO MONITOR.
--- NOTE | 2020-01-27 10:43 | NUR ---
PAL CARE COMFORT CARE VISIT - Pt sound asleep in bed with hob elevated. She did not wake to voice. She does not appear to be in pain and that has not been an issue for her. She appears frail and fatigued and is frequently sleeping when I stop by. I will try to catch her awake for a therapeutic visit.
--- NOTE | 2020-01-27 15:05 | NUR ---
Spiritual care visit conducted. Patient tells me that there is nothing new happening with her in terms of placement but she is hoping to gain enough strength that she could be placed in a foster care facility. She asks if I could help her make a call to Jonathan, who helps patient with her bills. I help with the call but to no avail (Jonathan does not answer but a message is left for her). I provide companionship and prayer. Patient responds well and voices appreciation for the visit.
--- NOTE | 2020-01-27 16:42 | NUR ---
SHIFT SUMMARY DIET ADVANCED PER PATIENT REQUEST. NO OTHER ACUTE CHANGES TODAY. NO COMPLAINTS TODAY PER PATIENT
--- NOTE | 2020-01-27 20:00 | NUR ---
COMFORT CARE CURRENTLY SITTING IN CHAIR WATCHING TV. DENIES PAIN. BREATHING UNLABORED. CALL LIGHT IN REACH. WILL CONTINUE TO MONITOR.
--- NOTE | 2020-01-28 00:49 | NUR ---
COMFORT CARE 1 PERSON ASSIST FROM CHAIR TO BED. DENIES PAIN. ATTENDS CHANGED. BED IN LOWEST POSITION WITH CALL LIGHT IN REACH. WILL CONTINUE TO MONITOR.
--- NOTE | 2020-01-28 00:51 | NUR ---
COMFORT CARE APPEARS TO BE SLEEPING COMFORTABLY IN BED. BREATHING IS UNLABORED. BED IN LOWEST POSITON WITH CALL LIGHT IN REACH. WILL CONTINUE TO MONITOR.
--- NOTE | 2020-01-28 02:15 | NUR ---
COMFORT CARE APPEARS TO BE SLEEPING COMFORTABLY IN BED. DENIED REPOSITIONING AT THIS TIME. DENIES PAIN. ATTENDS IN PLACE AND DRY. BREATING UNLABORED. BED IN LOWEST POSITON WITH CALL LIGHT IN REACH. WILL CONTINUE TO MONITOR.
--- NOTE | 2020-01-28 04:00 | NUR ---
COMFORT CARE CURRENTLY SLEEPING IN BED. REPOSITIONED FOR COMFORT. DENIES PAIN. BREATHING IS UNLABORED. BED IN LOWEST POSITON WITH CALL LIGHT IN REACH. WILL CONTINUE TO MONITOR AND REPORT TO ONCOMING RN.
--- NOTE | 2020-01-28 04:05 | NUR ---
FUNCTIONAL TESTER SUMMARY ALERT AND ORIENTED. DENIES PAIN. Q2 REPOSITIONING. BREATHING UNLABORED. APPEARED TO SLEEP T/O NIGHT. NO ACUTE CHANGES NOTED THIS SHIFT. BED IN LOWEST POSITION WITH CALL LIGHT IN REACH. WILL CONTINUE TO MONITOR AND REPORT TO ONCOMING RN.
--- NOTE | 2020-01-28 18:17 | NUR ---
shift summary patient is pleasnt, alert and oriented. she moves around one person assist in the room. she has only urinated once today. she is on comfort care. denies any pain or nausea.
--- NOTE | 2020-01-29 06:40 | NUR ---
SHIFT SUMMARY NO ACUTE CHANGES THIS SHIFT, NO C/O ANY KIND, SLEPT T/O THE NIGHT, WILL CONT TO MONITOR UNTIL REPORT GIVEN TO DAY RN.
--- NOTE | 2020-01-29 12:13 | NUR ---
pt resting and is comfortable.
--- NOTE | 2020-01-29 18:22 | NUR ---
shift summary patient is alert ad oriented. she is independent in the room. she reports that she is doing good and not wanting to talk to anyone on the phone unless she calls at this time.
--- NOTE | 2020-01-30 04:25 | NUR ---
SHIFT SUMMARY NO ACUTE CHANGES THIS SHIFT, NO C/O ANY KIND, SLEPT T/O THE NIGHT, SLEEPING AT THIS TIME, CALL LIGHT IN REACH, WILL CONT TO MONITOR UNTIL REPORT GIVEN TO DAY RN.
--- NOTE | 2020-01-30 15:29 | NUR ---
SHIFT SUMMARY PT IS A/O X 4 AND HAS NO COMPLAINTS OF PAIN. SHE REMAINS ON COMFORT CARE. THE PLAN IS FOR HER TO DC TO [facility] SOMETIME THIS WEEK. THE PT HAS BEEN REFUSING A SHOWER TODAY BUT HAS BEEN UP TO THE RECLINER. FIRE TRUCK DRIVER CHANGED HER BED LINENS. PT IS ABLE TO MAKE HER NEEDS KNOWN AND CALLS FOR HELP WHEN NEEDED. SHE HAS HER CALL LIGHT IN REACH.
--- NOTE | 2020-01-30 17:30 | NUR ---
pt still sleeps most of day. She ambulated in hallway with her neck pillow on and made a joke! No complaints of pain. Awaiting placement.
--- NOTE | 2020-01-31 05:13 | NUR ---
SUMMARY: PT IS A/OX4, SPECIFIES NEEDS AND IS PLEASANT AND COOPERATIVE W/CARE. SHE'S DENIED PAIN AND ALL OTHER COMPLAINTS. PT REMAINS ON COMFORT CARE AND WAS ASSISTED W/REPOSITIONING W/PILLOWS PLACED FOR SUPPORT AND SBD PREVENTION. SHE SLEEPS WITH A NECK PILLOW IN PLACE AND REPORTS COMFORT. ATTENDS CHANGED PRN FOR URINARY INCONTINENCE. NO S/S RESPIRATORY DISTRESS AND PT WAS W/O ACUTE CHANGES. SHE WILL LIKELY D/C TO [facility] PENDING MEDICARE PAPERWORK. WCTM AND REPORT TO DAY RN.
--- NOTE | 2020-01-31 12:14 | NUR ---
PATIENT IS UP IN THE RECLINER FOR LUNCH.
--- NOTE | 2020-01-31 16:55 | NUR ---
PATIENT IS ALERT AND ORINETED AND COOPERATIVE WITH CARE. SHE IS UP IN THE RECLINER AT THIS TIME. FAMILY IS AT THE BEDSIDE. STILL WAITING FOR PLACEMENT TO [facility]. PATIEN HAS NO COMPLAINTS OF PAIN. WILL CONTINUE TO MONITOR AND GIVE REPORT TO ONCOMING RN.
--- NOTE | 2020-01-31 17:47 | NUR ---
PATIENT IS UP IN RECLINER EATING DINNER
--- NOTE | 2020-02-01 05:47 | NUR ---
SUMMARY: A/OX4, SPECIFIES NEEDS AND COOPERATIVE W/CARE. SHE REMAINS ON COMFORT CARE BUT DENIES ANY PAIN OR DISTRESS. PT SLEPT MOST OF NOCTE AND SPENT SOME TIME IN HER RECLINER AT THE START OF SHIFT. PT PREFERS NECK PILLOW IN PLACE AT ALL TIMES. SHE WAS INCONTINENT T/O NOCTE W/ATTENDS CHANGED PRN. REPOSITION ASSIST ATTENDED TO. NO ACUTE CHANGES. PLACEMENT TO [facility] STILL PENDING. WCTM AND RPEORT TO DAY RN.
--- NOTE | 2020-02-01 09:13 | NUR ---
PATIENT IS SITTING UP IN BED FOR BREAKFAST. NO COMPLAINTS AT THIS TIME.
--- NOTE | 2020-02-01 15:36 | NUR ---
Spiritual care visit conducted. Patient talks about her frustration about how long she has been a patient in the hospital and how she does not understand the delay. She again emphasizes that she would like to go to an adult foster home. We talk about the family that has been supportive lately and about her sadness regarding the loss of her home and her things. I listen empathically and provide companionship and prayer. I will continue to remain available to patient.
--- NOTE | 2020-02-01 15:46 | NUR ---
PATIENT WALKED IN THE CHAND FOR 20FT WITH RN
--- NOTE | 2020-02-01 16:23 | NUR ---
PATIENT IS ALERT AND ORIENTED AND COOPERATIVE WITH CARE. SHE ASKED THE RN TO TAKE HER FOR A WALK IN THE CALL, WHICH WE DID. SHE IS WAS INCONTINENT OF BLADDER, ATTENDS CHANGED NEEDED. PATIENT TOLD THE MEDICAL ASSISTANT THAT SHE WOULD LIKE TO GO TO AN ADULT FOSTER HOME UPON DISCHARGE. NO COMPLAINTS OF PAIN. PATIENT IS UP IN THE RECLINER AT THIS TIME. WILL CONTINUE TO MONITOR
--- NOTE | 2020-02-01 19:03 | NUR ---
pt comfortable and interactive.
--- NOTE | 2020-02-01 21:18 | NUR ---
1933 PT RESTING COMFORTABLY BEDSIDE LOUNGE CHAIR WITH CHAIR ALARM APPLIED; COMFORT CARE; VERY HARD OF HEARING, ABLE TO FOLLOW SIMPLE VERBAL COMMANDS. 2014 PT ASSISTED BACK TO BED VIA SULY TRENT.
--- NOTE | 2020-02-02 04:22 | NUR ---
SHIFT SUMMARY: 89 Y/O SLENDER FEMALE ON COMFORT CARE; DENIES PAIN OR NAUSEA; ALERT AND ORIENTED X 2, ABLE TO FOLLOW SIMPLE VERBAL COMMANDS; HAPPY AND COOPERATIVE; PT PENDING PLACEMENT TO LTC; BED ALARM APPLIED, BED LOW POSITION WITH CALL LIGHT AT SIDE.
--- NOTE | 2020-02-02 11:48 | NUR ---
Pal Care Comfort care visit. Pt sitting up in chair speaking with woodwind instrument repairer, Roslyn. Parris is alert and oriented. She's looking forward to some OOT visitors coming this afternoon. I did not stay as liaison and pt were reviewing hospice plan of care. Case conferenced with woodwind instrument repairer after her visit also. DC to [facility]TC anticipated soon. Pt did not appear to have and has not reported pain, nausea, anxiety or other s/s.
--- NOTE | 2020-02-02 12:12 | NUR ---
MORNING ASSESSMENT: PATIENT HAS DENIED PAIN OR DISCOMFORT THROUGHOUT THE MORNING. PATIENT UP TO RECLINER. PATIENT REPORTS SHE IS LOOKING FORWARD TO HAVING HER NIECE VISIT TODAY. OFFERED [employer] SERVICES. PATIENT DECLINED AT THIS TIME. PATIENT DENIES NEED FOR FURTHER INTERVENTION.
--- NOTE | 2020-02-02 16:35 | NUR ---
Spiritual care visit conducted. Patient is sitting on a chair and resting but easily awakens to the sound of her name. Patient tells me about the visit with her niece today and the documents she is working on for her and about her long walk "way out to the double doors." Patient told me that she enjoyed music yesterday so this day I brought my guitar into her room and played 25 minutes worth of therapeutic guitar music. I also provided prayer. Patient responds well and shows signs of an elevated mood.
--- NOTE | 2020-02-02 19:39 | NUR ---
END OF SHIFT SUMMARY: PATIENT DENIED PAIN OR DISCOMFORT THROUGHOUT THE SHIFT. PATIENT WAS VISITED BY HER NIECE TODAY. PATIENT WAS ALSO VISITED BY SPIRITUAL CARE THROUGHOUT THE DAY. PATIENT DENIED NEEDS OTHER THAN SITTING IN HER RECLINER, HAVING ICE WATER AND BEING ABLE TO CONTINUE TO WORK ON HER ENSURE. PATIENT IS CALM AND APPRECIATIVE OF CARE. NO PHYSICAL SIGNS OF PAIN OR DISCOMFORT NOTED THROUGHOUT THE SHIFT.
--- NOTE | 2020-02-03 04:32 | NUR ---
SHIFT SUMMARY- PT. ON COMFORT CARE. NO ACUTE EVENTS OVERNIGHT. PT. SLEPT ON/OFF T/O THE SHIFT. NO APPARENT DISTRESS NOTED. DENIED ANY PAIN OR DISCOMFORT. A&O, ABLE TO MAKE NEEDS KNOWN. CALL LIGHT WITHIN REACH AND SIDE RAILS UP X2. WILL CONT TO MONITOR.
--- NOTE | 2020-02-03 09:31 | NUR ---
Visited with Parris this morning. She is awake and sitting up in her bed sipping on chocolate ensure. Therapeutic visit with her today. She denies any symptoms at this time. She reports her niece from [place] came and visited with her yesterday. She states that she is going to be discharged to at some point. She has no complaints or requests at this time. Nursing reports no concerns at this time. PC will continue to follow for symptom management and therapeutic visits.
--- NOTE | 2020-02-03 17:49 | NUR ---
SHIFT SUMMARY PATIENT DENIES PAIN, NAUSEA, AND SHORTNESS OF BREATH. PATIENT UP SBA TO CHAIR. PATIENT WALKED IN HALLWAY ONE ASSIST W/FWW. POOR PO INTAKE. DISCHARGE PENDING PLACEMENT.
--- NOTE | 2020-02-04 05:36 | NUR ---
SHIFT SUMMARY- NO AUTE EVENTS OVERNIGHT. PT. RESTING COMFORTABLY IN BED, NO APPARENT DISTRESS NOTED. NO C/O PAIN OR DISCOMFORT THIS SHIFT. CALL LIGHT WITHIN REACH AND SIDE RAILS UPX2. WILL CONT TO MONITOR.
--- NOTE | 2020-02-04 09:00 | NUR ---
PT PLEASANT QUIET. DENIES PAIN. IS ON COMFORT CARE. DENIES ANY NEEDS. SON IN ROOM. WE ARE LOOKING TO DISCHARGE TODAY . NO NEW CONCERNS AT THIS TIME. BED IN LOW POSITION, ALL LITE IN REACH, CALLS APPROP
--- NOTE | 2020-02-04 10:00 | NUR ---
PT HARDIK COOP A/O. LILIBETHLG, SON IN ROOM. STATES NO CONCERNS AT THIS TIME. ATE SOME OF ICECREAM AND SOME OF FOOD DRINK. STATES NOT READY FOR BATHROOM YET. NO NEW CONCERNS AT THIS TIME. BED IN LOW POSITION, CALL LITE IN REACH, CALLS APPROP
--- NOTE | 2020-02-04 10:41 | NUR ---
DR PARSONS CALLED. HOPEFULL D/C TX TODAY. NEED TEMP, B/M, AND RAPID COVID TEST
[2020-02-04] MEDS ORDERED: CATAPRES-TTS 31 EAC2 TOP (11:54)
[2020-02-04] MEDS ORDERED: MORP20L PO (11:55)
--- NOTE | 2020-02-04 13:01 | NUR ---
REPORT CALLED TO ADRI COFFMAN RN.
--- NOTE | 2020-02-04 13:44 | NUR ---
PT OUT DOOR TO FACILITY. [facility]. 1345. NO IV NO TELE.
== END 2020-02-04 13:51 | DRG 922 ==
LOC: ER 22:22 → MEDS 23:59 → ICUE 23:59 → ICUW 23:59 → PCU 23:59 → ICUE 12-25 02:44 → ICUW 12-29 16:35 → PCU 12-31 12:43 → MEDS 01-01 10:53 → PCU 01-01 18:34 → MEDS 01-04 21:55
PROVIDERS: Emergency Medicine; Family Medicine; Hospitalist; Internal Medicine; Internal Medicine Critical Care Medicine; Internal Medicine Pulmonary Disease; Pharmacist; ADMIT Surgery
PROC: 0BH17EZ Insertion of Endotracheal Airway into Trachea, Via Natural or Artificial Opening (ICD-10-PCS; principal; 2019-12-24)
PROC: 5A1945Z Respiratory Ventilation, 24-96 Consecutive Hours (ICD-10-PCS; 2019-12-24)
PROC: BD11YZZ Fluoroscopy of Esophagus using Other Contrast (ICD-10-PCS; 2019-12-24)
PROC: 02HV33Z Insertion of Infusion Device into Superior Vena Cava, Percutaneous Approach (ICD-10-PCS; 2019-12-24)
PROC: 3E043XZ Introduction of Vasopressor into Central Vein, Percutaneous Approach (ICD-10-PCS; 2019-12-24)
DX: T71.193A Asphyxiation due to mechanical threat to breathing due to other causes, assault, initial encounter (principal); J96.01 Acute respiratory failure with hypoxia; S12.8XXA Fracture of other parts of neck, initial encounter; J69.0 Pneumonitis due to inhalation of food and vomit; R64 Cachexia; E44.1 Mild protein-calorie malnutrition; Z51.5 Encounter for palliative care; E83.39 Other disorders of phosphorus metabolism; E83.42 Hypomagnesemia; E83.51 Hypocalcemia; E87.6 Hypokalemia; I10 Essential (primary) hypertension; I48.0 Paroxysmal atrial fibrillation; I65.22 Occlusion and stenosis of left carotid artery; I95.9 Hypotension, unspecified; J44.9 Chronic obstructive pulmonary disease, unspecified; R13.10 Dysphagia, unspecified; R53.81 Other malaise; S00.01XA Abrasion of scalp, initial encounter; S09.90XA Unspecified injury of head, initial encounter; S20.219A Contusion of unspecified front wall of thorax, initial encounter; S30.1XXA Contusion of abdominal wall, initial encounter; S69.91XA Unspecified injury of right wrist, hand and finger(s), initial encounter; Y07.499 Other family member, perpetrator of maltreatment and neglect; Y09 Assault by unspecified means; E78.5 Hyperlipidemia, unspecified
CPT/HCPCS: 31720; 36415; 36556; 51702; 70450; 70491; 71045; 71260; 72141; 73110; 74177; 74230; 80048; 80053; 80069; 80202; 81001; 82330; 82947; 83690; 83735; 83880; 84100; 84702; 85014; 85018; 85025; 85610; 87040; 87070; 87077; 87186; 87205; 92526; 92610; 92611; 94002; 94003; 94667; 94668; 96374-59; 96375; 97110; 97116; 97162; 97167; 97530; 97535; 99285-25; A9270-GY; C1751; C9113; G0480; J0282; J0330; J0360; J0610; J1160; J1650; J1956; J2060; J2250; J2370; J2704; J3010; J3370; J3480; J7030; J7040; J7060; L0160; Q9967; U0002; U0003